=== PATIENT | male | born 1940 | race Asian ===

== ENCOUNTER 2017-08-09 05:41 | Day surgery (SDC) | payer MEDICARE, SELFPAY ==
[2017-08-08 10:09] VITALS: BP 144/81; PULSE 70; RESP 16; TEMP 36.1; O2SAT 97; BMI 24.1
[2017-08-08 11:07] LABS: Hematocrit 40.2 % (40-54); Hemoglobin 13.6 g/dl (13.0-16.5); Mean Corp Hgb Conc 33.8 g/gl (32-36); Mean Corpuscular Hgb 31.3 pg (27.0-32.0); Mean Corpuscular Volume 92.4 fL (80-94); Mean Platelet Vol. 10.5 fl (6.2-12.0); Platelet Count 145 K/mm3 (150-450); RBC Distribution Width CV 12.9 % (11.6-14.6); RBC Distribution Width SD 42.6 fl (35.1-43.9); Red Blood Count 4.35 M/mm3 (4.6-6.2); White Blood Count 6.7 K/mm3 (4.4-11.0)
[2017-08-08 11:10] LABS: Scan Indicated on CBC? Y/N NO
[2017-08-08 11:29] LABS: Anion Gap 8 (5-15); BUN 20 mg/dL (7-18); BUN/Creat Ratio 12.7 RATIO (10-20); Calcium,Total 8.8 mg/dL (8.5-10.1); Chloride 102 mmol/L (98-107); Creatinine, Serum 1.57 mg/dL (0.70-1.30); EST Glomerular Filtration Rate 46 mL/min (>60); Est Glom Filt Rate - Afr Amer 56 mL/min (>60); Estimated Creatinine Clearance 41.98 ml/min; Glucose 170 mg/dL (70-110); Potassium 4.6 mmol/L (3.5-5.1); Sodium Level 139 mmol/L (136-145)
[2017-08-09] VITALS (11 sets, daily range): BP systolic 126–152; BP diastolic 64–134; PULSE 70–83; RESP 14–16; TEMP 36.1–36.9; O2SAT 92–100; BMI 24.1; BMI 24.3
[2017-08-09 06:31] LABS: Bedside Glucose 224 mg/dL (70-110)
[2017-08-09] MEDS: Cefazolin 2 GM in Syringe IV (07:30)
--- NOTE | 2017-08-09 07:30 | PROSB_PTH ---
PATIENT: HAIM MICHAEL [place] [facility] [id number] AGE/SX: 77/M ROOM: RE08/09/[address]: Zeferino Tate MD : [id number] BED: DIS: 08/10/2017 SPEC #: [id number] RECD: 08/09/17 12:29 STATUS: DANUTA SHIRIN #: [id number] EMILIANO: 08/09/17 07:[address]: Zeferino Tate DEPT: SURGICAL PATHOLOGY RECD BY: Sumanth Ortega ENTERED: 08/09/17 13:36 SP TYPE: PROST BX OTHR DR: Dr. John Paul Gurrola MD Tissues: Prostate, NOS Procedures: Surgery Specimen Level IV HEADER OPERATION: Transurethral resection, prostate Olympus PRE-OP DIAGNOSIS: Urgency of urination, nocturia and urge incontinence TISSUE SUBMITTED: Prostate chips MICROSCOPIC DIAGNOSIS Prostate, transurethral resection: Benign nodular hyperplasia, glandular and stromal types. Mild chronic inflammation. AM:santos 08/10/17 MICROSCOPIC DESCRIPTION Slides are reviewed. GROSS DESCRIPTION Received is one container labeled with the patient's name and designated prostate chips. The specimen consists of multiple irregular fragments of pink-barnes, rubbery, soft tissue that in aggregate weigh 1.6 gm and measure in aggregate 2.5 x 2 x 0.2 cm. The entire specimen is submitted in two cassettes. / AM:santos 08/09/17 TC:3 CPT: 87775
[2017-08-09] MEDS: Lubricating Jelly 60 GM Tube 30 GM TOPICAL (08:00)
--- NOTE | 2017-08-09 08:52 | PCM.IMDPSTOP ---
Immediate Post-Op Note Date of Procedure: 08/09/17 Primary Surgeon/Physician: Zeferino Tate nurse practitioner home assessments: None Pre-Operative Diagnosis: BPH w oibstruction, OAB Post-Operative Diagnosis: same Surgery/Procedure Performed:: cysto, Botox 100 IU's, TURP Description of Surgical Findings:: as above Estimated Blood Loss: 20 cc's Specimen's removed: prostatic chips Type of Anesthesia:: General - Gen ET D Krivinko - Admit VTE Documentation VTE Present on Admission: No VTE Mechan Device Prophylaxis: SCD's
--- NOTE | 2017-08-09 08:54 | PCM.OP.BLANK ---
Operative Report Date of Procedure: 08/09/17 09 August 2017 Diagnosis BPH with outlet obstruction and OAB Anesthesia General ET Kelli Fritz/Lucina Indication 77-year-old male who has had significant obstructive symptoms failed medical management has significant overactive bladder tolerating anticholinergics very poor and is brought this time for trans-resection prostate of Botox injection Procedure patient was preloaded with antibiotics and had SCUDs in place before coming to the OR. He is placed under general anesthesia ET for failure of an LMA. Placed lithotomy position prepped and draped sterile technique. Cystoscopy was performed showing normal urethra no strictures with bilobar hyperplasia elevated bladder neck and the bladder had significant trabeculation. There were no bladder stones. At this point after examining the bladder. The respiratory removed. Urethra filled with water-soluble lubricant. Was dilated with Hettinger sounds. 25 Barbadian resectoscopic sheath was inserted with the Olympus bipolar. At this point and is using a loop to resect the lateral lobes and patient was having some choking episodes he thinks about switch over to a VaporTrode elective vaporization of the prostatic fossa performed on the view sidewalls and the rough procedures no active bleeding exam inside the bladder no remaining chips. Patient had a wide open stream by Crede. That showed up appropriately. The external sphincter was intact. A 20 Barbadian catheter 5 cc balloon was placed to drainage. Patient was awakened and taken to RRR in good condition. This note was generated with [employer] dictation software. It may contain incorrect words, spelling, and punctuation that were not noted in checking the note before signing.
--- NOTE | 2017-08-09 08:58 | PCM.DC.URO ---
Discharge Diet: 1999 Calorie Control Diet, - - DRINK A LOT OF FLUIDS A LOT!! Discharge Activity: May Not Drive, May Shower, - - NO LIFTING OR STRAINING Lifting Restrictions: NO LIFTING Additional Activity Instructions:: IF CLOTS IN URINE, PUSH FLUIDS AND CALL ME Call your doctor if you observe: Fever of 101 or Higher, Inability to urinate, - - IF CATHETER PLUGS OFF, GO TO EMERGENCY ROOM Allergies/Adverse Reactions: Allergies No Known Allergies Allergy (Verified 08/08/17 09:24) Medications to take at Discharge Aspirin [Aspirin, Baby] 81 mg PO QHS 08/08/17 Finasteride [Proscar] 5 mg PO QHS 08/08/17 Fluticasone 0.05% [Flonase Nasal Warren] 2 spray NASAL QHS 08/08/17 Glimepiride [Amaryl] 4 mg PO QHS 08/08/17 Lovastatin [Mevacor] 40 mg PO QHS 08/08/17 Olopatadine HCl [Patanol] 1 drop EACH EYE BID PRN 08/08/17 Prednisone 10 mg PO BID PRN 08/08/17 Sertraline HCl [Zoloft] 100 mg PO QHS 08/08/17 Ciprofloxacin [Cipro] 250 mg PO BID #14 tab 08/09/17 TraMADol [Ultram (G)] 50 mg PO Q6H PRN PRN #14 tab 08/09/17 The following prescriptions were given: TraMADol [Ultram (G)] 50 mg PO Q6H PRN PRN #14 tab PRN Reason: Pain Ciprofloxacin [Cipro] 250 mg PO BID #14 tab Primary Care Physician: John Paul Gurrola MD [Primary Care Provider] - Please Follow Up With: Zeferino Tate MD - [phone] When: COME TO OFFICE ON MONDAY AM AROUND 10:00
[2017-08-09] MEDS: Lactated Ringers 1,000 ML 150 ML IV ×2 (11:19→18:28)
[2017-08-09] MEDS: Ciprofloxacin 500 MG Tablet PO (21:19)
[2017-08-09] MEDS: Aspirin 81 MG TAB.CHEW PO (21:19)
[2017-08-09] MEDS: Docusate Sodium 100 MG Capsule 200 MG PO (21:19)
[2017-08-09] MEDS: Glimepiride 4 MG Tablet PO (21:19)
[2017-08-09] MEDS: Fluticasone 0.05% 1 SPRAY NASAL.SRY 2 SPRAY NASAL (21:19)
[2017-08-09] MEDS: Finasteride 5 MG Tablet PO (21:21)
[2017-08-09] MEDS: Sertraline 100 MG Tablet PO (21:21)
[2017-08-09] MEDS: Atorvastatin Calcium 10 MG Tablet PO (21:21)
[2017-08-10] MEDS: Lactated Ringers 1,000 ML 150 ML IV (02:35)
[2017-08-10 04:00] VITALS: BP 116/72; PULSE 80; RESP 16; TEMP 36.7; O2SAT 94
[2017-08-10] MEDS: Docusate Sodium 100 MG Capsule 200 MG PO (11:01)
[2017-08-10] MEDS: Ciprofloxacin 500 MG Tablet PO (11:01)
--- NOTE | 2017-08-10 11:27 | NURSING ---
Reviewed care of anderson catheter including emptying of bedside bag with patient. Patient able to demonstrate how to appropriately drain anderson bag. Reviewed with patient importance of keeping the bag below the level of the bladder as well as appropriately cleansing of the catheter and surrounding area. Patient was also provided with a handout printed from [employer] about anderson care. Patient repeated that he will cook pickled meat prescriptions at [facility] and that he has a follow up appointment with Dr Tate on 08/11
--- NOTE | 2017-10-11 13:21 | PCM.OP.BLANK ---
Operative Report Date of Procedure: 08/09/17 11 October 2017 Date of the procedure 09 August 2017 This is a delayed note for procedure of 09 August 2017. Patient had the operative note dictated but it was incomplete. Plan 4, performed, and had discussed with patient extensively about Botox injection intraoperatively. Was performed but not dictated in the original note. Patient had 100 IUs of Botox diluted it at 10-1 show an injected in 10 cc throughout the bladder to help control urgency postoperatively. This was performed prior to proceeding with TURP. TURP Ambriz catheter was inserted and patient awakened and taken to RRR in good condition
== END 2017-08-10 11:25 | disposition home or self-care (01) ==
LOC: SDC 05:42 → AC 05:42 → MS2 10:47
PROVIDERS: Family Provider Family Medicine; PCP Family Medicine; Visit Provider Urology
PROC: (CPT 52287; principal; 2017-08-09 07:20)
DX: N41.1 Chronic prostatitis (principal); N40.1 Benign prostatic hyperplasia with lower urinary tract symptoms; N13.8 Other obstructive and reflux uropathy; N32.81 Overactive bladder; I25.10 Atherosclerotic heart disease of native coronary artery without angina pectoris; E78.00 Pure hypercholesterolemia, unspecified; E11.9 Type 2 diabetes mellitus without complications; G47.30 Sleep apnea, unspecified; I51.9 Heart disease, unspecified; F32.9 Major depressive disorder, single episode, unspecified; Z87.891 Personal history of nicotine dependence; Z79.82 Long term (current) use of aspirin; Z79.84 Long term (current) use of oral hypoglycemic drugs; Z79.899 Other long term (current) drug therapy
CPT/HCPCS: 00914; 52287; 52630; 36415; 80048; 82962; 85027; 88305; 93005; 97802; J7120; J0585; J3490

== ENCOUNTER → 2017-12-29 08:30 | Outpatient (CLI) | payer MEDICARE, SELFPAY ==
[2017-12-29 10:25] LABS: Absolute Lymphocyte Count 0.89 X10^3/ul (0.83-4.51); Basophil# 0.03 X10^3/uL; Basophil% 0.6 % (0-1); Eosinophil# 0.92 X10^3/uL; Eosinophils% 16.9 % (0-5); Hematocrit 39.7 % (40-54); Hemoglobin 13.2 g/dl (13.0-16.5); Lymphocyte # 0.89 X10^3/ul (4.0); Lymphocyte % 16.4 % (19-41); Mean Corp Hgb Conc 33.2 g/gl (32-36); Mean Corpuscular Hgb 30.3 pg (27.0-32.0); Mean Corpuscular Volume 91.1 fL (80-94); Monocyte# 0.63 X10^3/uL; Monocyte% 11.6 % (0-10); Neutrophil # 2.95 X10^3/uL (2.7-7.7); Neutrophil % 54.3 % (47-70); Platelet Count 151 K/mm3 (150-450); RBC Distribution Width CV 13.1 % (11.6-14.6); Red Blood Count 4.36 M/mm3 (4.6-6.2); White Blood Count 5.4 K/mm3 (4.4-11.0)
[2017-12-29 10:26] LABS: POSITIVE COUNT NO; POSITIVE DIFFERENTIAL NO; POSITIVE MORPHOLOGY NO
[2017-12-29 10:39] LABS: Hemoglobin A1c 7.6 % (4.2-6.3)
[2017-12-29 10:51] LABS: Anion Gap 7 (5-15); BUN 21 mg/dL (7-18); BUN/Creat Ratio 13.5 RATIO (10-20); Calcium,Total 8.7 mg/dL (8.5-10.1); Chloride 107 mmol/L (98-107); Cholesterol 263 mg/dL (200); Creatinine, Serum 1.55 mg/dL (0.70-1.30); EST Glomerular Filtration Rate 47 mL/min (>60); Est Glom Filt Rate - Afr Amer 56 mL/min (>60); Glucose 73 mg/dL (74-106); High Density Lipoprotein 40 mg/dL; PSA,Total - Annual Screen 2.82 ng/mL (0.00-4.00); Sodium Level 141 mmol/L (136-145); Triglycerides 156 mg/dL; Very Low Density Lipoprotein 31 mg/dL (5-40)
== END ==
PROVIDERS: Family Provider Family Medicine; PCP Family Medicine; Visit Provider Family Medicine
DX: E11.22 Type 2 diabetes mellitus with diabetic chronic kidney disease (principal); N18.3 Chronic kidney disease, stage 3 (moderate); E78.00 Pure hypercholesterolemia, unspecified; Z12.5 Encounter for screening for malignant neoplasm of prostate
CPT/HCPCS: 36415; 80048; 80061; 83036; 84153; 85025; G0103

== ENCOUNTER → 2018-01-09 07:07 | Outpatient (CLI) | payer MEDICARE, SELFPAY ==
--- NOTE | 2018-01-09 14:02 | STRESSREP ---
Stress Test Report Date: 01/09/2018 Procedure: Exercise tolerance test/imaging study Indications: CAD Consent: Per the patient Procedure: The patient exercised on a Joaquín protocol for 9 minutes completing Stage III achieving a peak heart rate of 116 bpm (80 % predicted maximal heart rate) with a peak blood pressure 180/60 mmHg and a peak MET capacity of 10 METs. The baseline ECG demonstrated normal sinus rhythm. The peak exercise ECG demonstrated somatic/motion artifact with no obvious ECG changes the heart rate achieved. There were no cardiac dysrhythmias pretest, during exercise, or recovery. The functional capacity was considered good. There was no complaint of chest discomfort during exercise or recovery. The examination was discontinued secondary to dyspnea and fatigue. Impression: 1. Technically inadequate (percent predicted maximal heart rate less than 85%) exercise tolerance test 2. Peak exercise ECG demonstrated somatic/motion artifact with no obvious ECG changes at the heart rate achieved 3. No cardiac dysrhythmias pretest, during exercise, or recovery. 4. Nuclear images pending Myocardial perfusion imaging study: Technique: The patient was injected with 11.4 mCi of technetium 99m Cardiolite and subsequently rest SPECT Cardiolite nuclear imaging was obtained in the horizontal long, vertical long, and short axis views. The patient exercised on a Joaquín protocol for 9 minutes completing Stage III achieving a peak heart rate of 116 bpm (80 % predicted maximal heart rate) with a peak blood pressure 180/60 mmHg and a peak MET capacity of 10 METs. The patient was injected with 33.2 mCi of technetium 99m Cardiolite and subsequently stress SPECT Cardiolite nuclear imaging was obtained in the horizontal long, vertical long, and short axis views. A gated Cardiolite study at peak stress was obtained. Interpretation: Rest and stress SPECT Cardiolite nuclear imaging status post realignment, normalization, and attenuation correction, demonstrates appearance of relative uniform tracer uptake and myocardial perfusion appearing within normal limits at the heart rate achieved. There is end systolic thickening and brightening. The gated Cardiolite study demonstrates myocardial thickening and inward wall motion. The reported LVEF is 67 %. Impression: 1. Rest and stress SPECT Cardiolite nuclear imaging demonstrate severe uniform tracer uptake and myocardial perfusion appearing within normal limits at the heart rate achieved. 2. The gated Cardiolite study reports an LVEF of 67 %. This note was generated with [employer] software. It may contain incorrect words, spelling, and punctuation that were not noted in checking the note before signing.
== END ==
PROVIDERS: Family Provider Family Medicine; PCP Family Medicine; Visit Provider Family Medicine
DX: I25.10 Atherosclerotic heart disease of native coronary artery without angina pectoris (principal)
CPT/HCPCS: 78452; 93017; A9500; A4216

== ENCOUNTER → 2018-07-16 09:36 | Outpatient (CLI) | payer MEDICARE, SELFPAY ==
[2017-08-09 11:11] VITALS: BMI 24.3
[2018-07-16 10:22] LABS: Absolute Lymphocyte Count 1.25 X10^3/ul (0.83-4.51); Absolute Neutrophil Count 3.1 X10^3/uL (2.0-7.7); Basophil# 0.02 X10^3/uL; Basophil% 0.3 % (0-1); Eosinophil# 1.12 X10^3/uL; Eosinophils% 18.7 % (0-5); Hematocrit 39.9 % (40-54); Hemoglobin 12.8 g/dl (13.0-16.5); Lymphocyte # 1.25 X10^3/ul (4.0); Lymphocyte % 20.8 % (19-41); Mean Corp Hgb Conc 32.1 g/gl (32-36); Mean Corpuscular Hgb 30.3 pg (27.0-32.0); Mean Corpuscular Volume 94.5 fL (80-94); Mean Platelet Vol. 10.4 fl (6.2-12.0); Monocyte# 0.47 X10^3/uL; Monocyte% 7.8 % (0-10); Neutrophil # 3.13 X10^3/uL (2.7-7.7); Neutrophil % 52.2 % (47-70); Platelet Count 152 K/mm3 (150-450); Red Blood Count 4.22 M/mm3 (4.6-6.2)
[2018-07-16 10:24] LABS: POSITIVE COUNT NO; POSITIVE DIFFERENTIAL NO; POSITIVE MORPHOLOGY NO
[2018-07-16 10:45] LABS: Hemoglobin A1c 6.3 % (4.2-6.3)
[2018-07-16 10:53] LABS: ALB/GLOB Ratio 0.9 RATIO (0.9-2.4); AST(SGOT) 21 U/L (15-37); Alanine Aminotransfer ALT/SGPT 25 U/L (16-61); Albumin, Serum 3.7 g/dL (3.2-5.0); Alkaline Phosphatase 97 U/L (45-117); Anion Gap 5 (5-15); BUN 20 mg/dL (7-18); BUN/Creat Ratio 12.2 RATIO (10-20); Calcium,Total 8.1 mg/dL (8.5-10.1); Chloride 108 mmol/L (98-107); Cholesterol 130 mg/dL (200); Creatinine, Serum 1.64 mg/dL (0.70-1.30); EST Glomerular Filtration Rate 44 mL/min (>60); Est Glom Filt Rate - Afr Amer 53 mL/min (>60); Globulin 4.2 g/dL (2.2-4.2); Glucose 88 mg/dL (74-106); High Density Lipoprotein 43 mg/dL; Potassium 4.1 mmol/L (3.5-5.1); Protein, Total 7.9 g/dL (6.4-8.2); Sodium Level 142 mmol/L (136-145); Thyroid Stim Hormone (TSH) 2.37 uIU/mL (0.358-3.74); Triglycerides 103 mg/dL; Very Low Density Lipoprotein 21 mg/dL (5-40)
== END ==
PROVIDERS: Family Provider Family Medicine; PCP Family Medicine; Referring Provider Family Medicine; Visit Provider Family Medicine
DX: R63.4 Abnormal weight loss (principal); E11.9 Type 2 diabetes mellitus without complications; E78.00 Pure hypercholesterolemia, unspecified
CPT/HCPCS: 36415; 80053; 80061; 83036; 84443; 85025

== ENCOUNTER → 2018-10-04 16:31 | Outpatient (CLI) | payer MEDICARE, SELFPAY ==
[2017-08-09 11:11] VITALS: BMI 24.3
--- NOTE | 2018-10-04 16:34 | RAD_ITS ---
STUDY: X-RAY CHEST REASON FOR EXAM: Male, 78 years old. Cough TECHNIQUE: PA and lateral views of the chest. COMPARISON: None. FINDINGS: Reticular dominant process of the left lower lobe abuts the left hemidiaphragm. Mild reticular opacities of the lateral right lower lobe also identified. There is no demonstrated pleural abnormality. Normal size heart. Normal mediastinum and ayaz. Normal visualized pulmonary arteries. There is atherosclerotic calcification of the aortic arch with tortuosity. There are diffuse degenerative changes of the visualized thoracic spine. Normal visualized ribs, clavicles, and shoulders. There is no demonstrated abnormality of the visualized soft tissue structures of the upper abdomen. RAD/Chest PA and Lateral IMPRESSION: 1. Asymmetric left basilar infiltrate suggesting pneumonia. Suspect underlying bibasilar fibrotic changes. Electronically Signed: Alexandro Mccurdy MD at 21:15 EST , Service support ,
== END ==
PROVIDERS: Family Provider Family Medicine; PCP Family Medicine; Referring Provider Family Medicine; Visit Provider Family Medicine
DX: R05 Cough (principal)
CPT/HCPCS: 71046

== ENCOUNTER → 2018-10-19 09:37 | Outpatient (CLI) | payer MEDICARE, SELFPAY ==
--- NOTE | 2018-10-19 09:42 | RAD_ITS ---
STUDY: X-RAY - ESOPHAGUS (BARIUM SWALLOW) WITH FLUOROSCOPY REASON FOR EXAM: Male, 78 years old. Dysphasia. Cough with swallowing. TECHNIQUE: 19 view(s) of the esophagus were obtained following swallowing of barium. FLUOROSCOPY TIME (if supplied): (0:30) minutes/seconds COMPARISON: Comparison is made with prior study dated May 17, 2017. FINDINGS: There is no demonstrated esophageal foreign body. There is no demonstrated stricture or mucosal abnormality. Normal gastroesophageal junction, without a demonstrated hiatal hernia. The patient ingested a 12 mm tablet of barium without any difficulty. There is atherosclerotic calcification of the aortic arch with tortuosity of the descending aorta. Normal visualized pulmonary parenchyma. Normal visualized osseous structures of the thorax. RAD/Esophagus Only IMPRESSION: Normal plain film x-ray examination (barium swallow) of the esophagus. Electronically Signed: Jason Salcedo MD at 10:46 EST , Service support ,
== END ==
PROVIDERS: Family Provider Family Medicine; PCP Family Medicine; Referring Provider Family Medicine; Visit Provider Family Medicine
DX: R13.10 Dysphagia, unspecified (principal)
CPT/HCPCS: 74220

== ENCOUNTER → 2019-03-29 | Outpatient (CLI) | payer MEDICARE, SELFPAY ==
[2017-08-09 11:11] VITALS: BMI 24.3
[2019-03-29 12:20] LABS: Absolute Lymphocyte Count 0.73 X10^3/uL (0.83-4.51); Absolute Neutrophil Count 3.2 X10^3/uL (2.0-7.7); Basophil# 0.04 X10^3/uL; Basophil% 0.7 % (0-1); Eosinophil# 0.82 X10^3/uL; Eosinophils% 15.2 % (0-5); Hematocrit 36.3 % (40-54); Hemoglobin 11.8 g/dL (13.0-16.5); Lymphocyte # 0.73 X10^3/ul (4.0); Lymphocyte % 13.6 % (19-41); Mean Corp Hgb Conc 32.5 g/dL (32-36); Mean Corpuscular Hgb 30.5 pg (27.0-32.0); Mean Corpuscular Volume 93.8 fL (80-94); Mean Platelet Vol. 10.8 fl (6.2-12.0); Monocyte# 0.58 X10^3/uL; Monocyte% 10.8 % (0-10); NRBC Flagged by Analyzer 0 % (0-5); Neutrophil # 3.18 X10^3/uL (2.7-7.7); Neutrophil % 59.1 % (47-70); Platelet Count 140 K/mm3 (150-450); RBC Distribution Width CV 12.8 % (11.6-14.6); RBC Distribution Width SD 43.8 fl (35.1-43.9); Red Blood Count 3.87 M/mm3 (4.6-6.2); White Blood Count 5.4 K/mm3 (4.4-11.0)
[2019-03-29 12:52] LABS: ALB/GLOB Ratio 0.9 RATIO (0.9-2.4); AST(SGOT) 17 U/L (15-37); Alanine Aminotransfer ALT/SGPT 22 U/L (16-61); Albumin, Serum 3.7 g/dL (3.2-5.0); Alkaline Phosphatase 79 U/L (45-117); Anion Gap 7 (5-15); BUN 16 mg/dL (7-18); BUN/Creat Ratio 9.2 RATIO (10-20); Calcium,Total 8.6 mg/dL (8.5-10.1); Chloride 106 mmol/L (98-107); Creatinine, Serum 1.74 mg/dL (0.70-1.30); EST Glomerular Filtration Rate 41 mL/min (>60); Est Glom Filt Rate - Afr Amer 49 mL/min (>60); Glucose 117 mg/dL (74-106); PSA,Total - Annual Screen 3.18 ng/mL (0.00-4.00); Protein, Total 7.7 g/dL (6.4-8.2); Sodium Level 141 mmol/L (136-145); Thyroid Stim Hormone (TSH) 2.91 uIU/mL (0.358-3.74)
[2019-03-29 13:37] LABS: Hemoglobin A1c 6.3 % (4.2-6.3)
== END | disposition home or self-care (01) ==
LOC: MFPLAB 10:35
PROVIDERS: Family Provider Family Medicine; PCP Family Medicine; Referring Provider Family Medicine; Visit Provider Family Medicine
DX: E11.9 Type 2 diabetes mellitus without complications (principal); R63.4 Abnormal weight loss; Z12.5 Encounter for screening for malignant neoplasm of prostate
CPT/HCPCS: 36415; 80053; 83036; 84153; 84443; 85025; G0103

== ENCOUNTER → 2019-04-17 | Outpatient (CLI) | payer MEDICARE, SELFPAY ==
[2017-08-09 11:11] VITALS: BMI 24.3
[2019-04-17 15:44] LABS: Absolute Lymphocyte Count 0.65 X10^3/uL (0.83-4.51); Absolute Neutrophil Count 4.8 X10^3/uL (2.0-7.7); Basophil# 0.04 X10^3/uL; Basophil% 0.6 % (0-1); Eosinophil# 0.65 X10^3/uL; Eosinophils% 9.6 % (0-5); Hematocrit 36.9 % (40-54); Hemoglobin 11.8 g/dL (13.0-16.5); Lymphocyte # 0.65 X10^3/ul (4.0); Lymphocyte % 9.6 % (19-41); Mean Corpuscular Volume 96.9 fL (80-94); Mean Platelet Vol. 10.4 fl (6.2-12.0); Monocyte# 0.66 X10^3/uL; Monocyte% 9.7 % (0-10); NRBC Flagged by Analyzer 0 % (0-5); Neutrophil # 4.75 X10^3/uL (2.7-7.7); Neutrophil % 69.9 % (47-70); Platelet Count 137 K/mm3 (150-450); RBC Distribution Width SD 46.7 fl (35.1-43.9); Red Blood Count 3.81 M/mm3 (4.6-6.2); White Blood Count 6.8 K/mm3 (4.4-11.0)
[2019-04-17 16:29] LABS: Erythrocyte Sedimentation Rate 22 mm/hr (0-20)
[2019-04-17 16:41] LABS: ALB/GLOB Ratio 0.9 RATIO (0.9-2.4); AST(SGOT) 20 U/L (15-37); Alanine Aminotransfer ALT/SGPT 25 U/L (16-61); Albumin, Serum 3.6 g/dL (3.2-5.0); Alkaline Phosphatase 73 U/L (45-117); Anion Gap 5 (5-15); BUN 24 mg/dL (7-18); BUN/Creat Ratio 13.1 RATIO (10-20); Calcium,Total 8.4 mg/dL (8.5-10.1); Chloride 110 mmol/L (98-107); Creatinine, Serum 1.83 mg/dL (0.70-1.30); EST Glomerular Filtration Rate 38 mL/min (>60); Est Glom Filt Rate - Afr Amer 46 mL/min (>60); Globulin 3.9 g/dL (2.2-4.2); Glucose 131 mg/dL (74-106); Protein, Total 7.5 g/dL (6.4-8.2); Sodium Level 143 mmol/L (136-145); Thyroid Stim Hormone (TSH) 1.13 uIU/mL (0.358-3.74)
== END | disposition home or self-care (01) ==
PROVIDERS: Family Provider Family Medicine; PCP Family Medicine; Referring Provider Family Medicine; Visit Provider Family Medicine
DX: R53.83 Other fatigue (principal)
CPT/HCPCS: 36415; 80053; 84443; 85025; 85652

== ENCOUNTER → 2020-01-17 14:49 | Outpatient (CLI) | payer MEDICARE, SELFPAY ==
[2017-08-09 11:11] VITALS: BMI 24.3
--- NOTE | 2020-01-17 14:52 | RAD_ITS ---
STUDY: X-RAY - LEFT KNEE REASON FOR EXAM: Male, 79 years old. Recent fall, lateral side pain TECHNIQUE: 4 view(s) of the knee. COMPARISON: February 06, 2017 FINDINGS: Normal visualized distal femur. Normal visualized proximal tibia and fibula. Normal proximal tibiofibular articulation. There is mild degenerative arthrosis of the medial femorotibial compartment. There is mild degenerative arthrosis of the lateral femorotibial compartment. There is mild degenerative arthrosis of the patellofemoral articulation. There is lateral patellar tilt. There is a joint effusion. There is a stable metallic density that appears to be within the lateral proximal tibia. There are additional stable foreign bodies projecting over the soft tissues. RAD/Knee 4 or More Views IMPRESSION: Joint effusion. Degenerative changes. Stable foreign bodies within the soft tissues and proximal tibia. Electronically Signed: Yusra Poe MD at 15:13 EDT Tel , Service support ,
== END ==
PROVIDERS: PCP Family Medicine; Referring Provider Family Medicine; Visit Provider Family Medicine
DX: S89.92XA Unspecified injury of left lower leg, initial encounter (principal)
CPT/HCPCS: 73564

== ENCOUNTER → 2020-05-07 07:36 | Outpatient (CLI) | payer MEDICARE, SELFPAY ==
--- NOTE | 2020-05-07 07:41 | CT_ITS ---
STUDY: CT LEFT KNEE WITHOUT CONTRAST REASON FOR EXAM: Male, 80 years old. OSTEOARTHRITIS OF LT KNEE, FELL-INJURING LT KNEE, C/O KNEE PAIN RADIATION DOSAGE (If Supplied By Facility): CTDIvol = ( 15.35 ) mGy, DLP = ( 419.26 ) mGycm TECHNIQUE: Transaxial CT imaging of the knee was performed. Coronal and sagittal images were reformatted. Individualized dose optimization techniques were used for this CT. COMPARISON: Comparison is made with prior radiograph dated 01/17/2020. FINDINGS: Normal medial femoral condyle and medial tibial plateau. Mild degree of the joint space narrowing involving the medial compartment of the knee joint. Minimal degenerative spurring along the medial femoral condyle. There is a 1.2 cm x 0.3 cm metallic density in the lateral tibial plateau along its midportion. The evidence of the subchondral cystic formation along the lateral tibial plateau. No evidence of osteochondral defect. There is preservation of the articular joint space of the lateral knee compartment. Normal proximal tibiofibular articulation. Moderate size joint effusion. The quadriceps tendon is grossly normal. The patellar tendon is grossly normal. Normal Hoffa''s fat pad. The soft tissues are unremarkable. CT/Extremity Lower without Contra IMPRESSION: Moderate sized joint effusion. Mild degree of the joint space narrowing involving the medial compartment of knee joint. Subchondral cysts are seen in the lateral tibial plateau with no evidence of osteochondritis desiccation. Small metallic density is seen in the lateral tibial plateau. Electronically Signed: Jason Salcedo, at 8:25 EDT , Service support ,
== END ==
PROVIDERS: PCP Family Medicine; Referring Provider Orthopaedic Surgery; Visit Provider Orthopaedic Surgery
DX: M17.12 Unilateral primary osteoarthritis, left knee (principal)
CPT/HCPCS: 73700

== ENCOUNTER → 2020-12-25 10:38 | Outpatient (CLI) | payer MEDICARE, SELFPAY ==
[2017-08-09 11:11] VITALS: BMI 24.3
[2020-12-25 12:49] LABS: Hemoglobin A1c 6.8 % (3.8-5.6)
[2020-12-25 13:42] LABS: Anion Gap 6 (5-15); BUN 25 mg/dL (7-18); BUN/Creat Ratio 13.7 RATIO (10-20); Calcium,Total 8.7 mg/dL (8.5-10.1); Chloride 107 mmol/L (98-107); Cholesterol 240 mg/dL (200); Creatinine, Serum 1.83 mg/dL (0.70-1.30); EST Glomerular Filtration Rate 38 mL/min (>60); Est Glom Filt Rate - Afr Amer 46 mL/min (>60); Glucose 160 mg/dL (74-106); High Density Lipoprotein 48 mg/dL; Potassium 4.5 mmol/L (3.5-5.1); Sodium Level 139 mmol/L (136-145); Thyroid Stim Hormone (TSH) 3.59 uIU/mL (0.358-3.74); Triglycerides 178 mg/dL; Very Low Density Lipoprotein 36 mg/dL (5-40)
== END ==
PROVIDERS: PCP Family Medicine; Referring Provider Family Medicine; Visit Provider Family Medicine
DX: Z00.00 Encounter for general adult medical examination without abnormal findings (principal); E11.9 Type 2 diabetes mellitus without complications
CPT/HCPCS: 36415; 80048; 80061; 83036; 84443

== ENCOUNTER → 2021-02-01 14:46 | Outpatient (CLI) | payer MEDICARE, SELFPAY ==
[2017-08-09 11:11] VITALS: BMI 24.3
[2021-02-01 17:48] LABS: Absolute Lymphocyte Count 0.78 X10^3/uL (0.83-4.51); Basophil# 0.03 X10^3/uL; Basophil% 0.4 % (0-1); Eosinophil# 0.73 X10^3/uL; Eosinophils% 10.2 % (0-5); Hematocrit 37.1 % (40-54); Hemoglobin 11.7 g/dL (13.0-16.5); Lymphocyte # 0.78 X10^3/ul (0.83-4.51); Lymphocyte % 10.8 % (19-41); Mean Corp Hgb Conc 31.5 g/dL (32-36); Mean Corpuscular Hgb 29.8 pg (27.0-32.0); Mean Corpuscular Volume 94.4 fL (80-94); Mean Platelet Vol. 10.6 fl (6.2-12.0); Monocyte# 0.63 X10^3/uL; Monocyte% 8.8 % (0-10); NRBC Flagged by Analyzer 0 % (0-5); Neutrophil # 4.99 X10^3/uL (2.7-7.7); Neutrophil % 69.4 % (47-70); Platelet Count 173 K/mm3 (150-450); RBC Distribution Width CV 13.4 % (11.6-14.6); RBC Distribution Width SD 45.9 fl (35.1-43.9); Red Blood Count 3.93 M/mm3 (4.6-6.2); White Blood Count 7.2 K/mm3 (4.4-11.0)
[2021-02-01 18:08] LABS: Anion Gap 7 (5-15); BUN 24 mg/dL (7-18); BUN/Creat Ratio 13.7 RATIO (10-20); Calcium,Total 8.6 mg/dL (8.5-10.1); Chloride 107 mmol/L (98-107); Creatinine, Serum 1.75 mg/dL (0.70-1.30); EST Glomerular Filtration Rate 40 mL/min (>60); Est Glom Filt Rate - Afr Amer 49 mL/min (>60); Glucose 120 mg/dL (74-106); Potassium 4.6 mmol/L (3.5-5.1); Sodium Level 142 mmol/L (136-145)
== END ==
PROVIDERS: PCP Family Medicine; Referring Provider Family Medicine; Visit Provider Family Medicine
DX: R07.9 Chest pain, unspecified (principal)
CPT/HCPCS: 36415; 80048; 85025

== ENCOUNTER 2021-02-02 22:31 | Emergency (ER) | payer MEDICARE, SELFPAY ==
[2021-02-02 22:32] VITALS: BP 161/81; PULSE 75; RESP 16; TEMP 36.2; O2SAT 98; BMI 27.0
[2021-02-02 22:37] VITALS: BP 161/81; PULSE 67; RESP 15; O2SAT 98
[2021-02-02 22:46] LABS: Bedside Glucose 158 mg/dL (70-110)
--- NOTE | 2021-02-02 22:52 | CT_ITS ---
STUDY: CT BRAIN WITHOUT CONTRAST REASON FOR EXAM: Male, 80 years old. fall, amnesia,low blood sugar RADIATION DOSAGE (If Supplied By Facility): CTDIvol = ( 44.99 ) mGy, DLP = ( 829.85 ) mGycm TECHNIQUE: Transaxial CT imaging of the brain was performed without administration of intravenous contrast material. Individualized dose optimization techniques were used for this CT. COMPARISON: No relevant priors. FINDINGS: Normal soft tissue structures. Normal calvarium. There is mild cerebral atrophy with widening of the extra-axial spaces and ventricular dilatation. There are areas of decreased attenuation within the white matter tracts of the supratentorial brain, consistent with microvascular disease changes. Normal basal ganglia and thalami. Normal brainstem. Normal cerebellum. There is no intracranial hemorrhage. There are no findings of an acute ischemic infarction. Normal visualized paranasal sinuses. CT/Brain/Head without Contrast IMPRESSION: Chronic involutional changes of the brain. Electronically Signed: Dallas Preciado DO at 23:31 EDT Tel , Service support ,
--- NOTE | 2021-02-02 22:53 | EKG12_ITS ---
Test Reason : HYPOGLYCEMIA Blood Pressure : / mmHG Vent. Rate : 066 BPM Atrial Rate : 066 BPM P-R Int : 152 ms QRS Dur : 084 ms QT Int : 432 ms P-R-T Axes : 058 064 063 degrees QTc Int : 452 ms Normal sinus rhythm Normal ECG Confirmed by ONELIA NGUYỄN, SAMSON ([id number]), supervising editor news reel VIVIAN KANG ([id number]) on 02/05/2021 8:27:17 AM Referred By: BB Confirmed By:SAMSON ROUSSEAU MD
--- NOTE | 2021-02-02 22:54 | EX.ED.DYSGE1 ---
HPI History of Present Illness Chief Complaint: Hypoglycemia Informant: patient and EMS Onset/Context/Timing Onset: Today (JPTA) Quality: pt denies pain/sx Narrative Narrative: Patient had a fall tonight. He was brought by EMS, he was a little lethargic and his blood sugar was 50 when they checked it there, they gave him D10 through an IV, he is more alert since then. He is a type II diabetic on oral medications. He does not remember the fall or understand why he is in the emergency department but he is redirectable. He states he remembers that he had left eye cataract surgery a few days ago and has been on drops since then with no major issues. He denies pain anywhere to suggest an injury, he says that his left knee Has been hurting off and on, he cannot remember how long but does not sound like that is a new problem. [facility] Medical History (Updated 02/03/21 @ 01:[address] Jaime Hayes MD) Former smoker Hyperlipidemia Sleep apnea Type 2 diabetes mellitus Home Medications Lovastatin [Mevacor] 40 mg PO QHS 08/08/17 [History Last Taken Unknown] Olopatadine Hcl [Patanol] 1 drp EACH EYE BID PRN 08/08/17 [History Last Taken Unknown] aspirin 81 mg PO QHS 08/08/17 [History Last Taken Unknown] finasteride 5 mg PO QHS 08/08/17 [History Last Taken Unknown] fluticasone propionate 2 spray NASAL QHS 08/08/17 [History Last Taken Unknown] glimepiride 4 mg PO QHS 08/08/17 [History Last Taken Unknown] prednisone 10 mg PO BID PRN 08/08/17 [History Last Taken Unknown] sertraline 100 mg PO QHS 08/08/17 [History Last Taken Unknown] ciprofloxacin HCl 250 mg PO BID #14 tab 08/09/17 [Rx Last Taken Unknown] tramadol 50 mg PO Q6H PRN PRN #14 tab 08/09/17 [Rx Last Taken Unknown] Allergy/AdvReac Type Severity Reaction Status Date / Time No Known Allergies Allergy Verified 02/02/21 22:37 Social History Smoking Status: Former smoker ROS ROS ED Constitutional Constitutional ED: Denies chills or fever(s) Eyes Eyes: Reports other Details: Postoperative left eye discomfort and redness ; Denies diplopia ENT ENT ED: Denies rhinorrhea or sore throat Cardiovascular Cardiovascular: Denies chest pain or palpitations Respiratory/Chest Respiratory/Chest: Denies cough or dyspnea Gastrointestinal Gastrointestinal: Denies abdominal pain, diarrhea, nausea or vomiting Genitourinary Genitourinary ED: Denies dysuria or hematuria Musculoskeletal Musculoskeletal: Reports as per HPI; Denies back pain or neck pain Integumentary Denies abscess or rash Neurologic Neurologic: Denies headache(s), paresthesias or weakness Psychiatric Psychiatric: Denies anxiety or suicidal thoughts EXAM Physical Exam Const Vital Signs: 02/02/21 22:32 02/02/21 22:37 Temperature 97.2 F L Temperature Source Temporal Pulse Rate 75 67 Respiratory Rate 16 15 Respiratory Effort Normal Respiratory Pattern Normal Blood Pressure 161/81 H 161/81 H Blood Pressure Mean 107 107 Pulse Ox 98 98 Oxygen Delivery Method Room Air Room Air Positive well nourished and well developed General Appearance ED: well developed and NAD HEENT Reports moist mucous membranes normocephalic and atraumatic Eyes PERRL and EOMs intact bilaterally Eyes Narrative: Evidence of minor ecchymosis/subconjunctival hemorrhage right nasal conjunctive a/sclera consistent with postoperative changes. No discharge or active bleeding. Anterior chamber deep and quiet on gross inspection. Neck full ROM and supple Resp normal respiratory effort and clear to auscultation bilaterally Cardio regular rate, regular rhythm and no murmurs GI non-tender and non-distended Auscultation: normoactive bowel sounds Palpation: soft Back/Spine no CVA tenderness General Back: other FROM Extremity normal to inspection General Extremety ED: Negative for edema, pulses abnormal or tenderness General Extremity: Negative for edema or pulses abnormal Neuro oriented x3, CN's II-XII intact bilaterally and no sensory deficits noted Neuro Narrative: Amnestic to event but oriented otherwise. Sensorium / Orientation: awake and alert Motor Exam: strength 5/5 throughout Skin no rashes or lesions noted and no wounds MDM MDM MDM Narrative Medical decision making narrative: Patient was monitored here he had no telemetry events, his vital signs are normal with a blood pressure in the 120s, heart rate in the 60s, pulse ox 94% while sleeping in no respiratory distress on reevaluation. His new blood sugar is 99 after he was observed for 3+ hours. His son came and I had a long discussion with him. The patient's did not come, but he spoke with her, basically she heard him getting up from the floor in the bathroom and came to evaluate him and saw that he had passed out onto the bathroom floor. He was a little disoriented and lethargic, after EMS gave him D10 this improved and he arrived here. His work-up is negative except for renal insufficiency that appears to be chronic. CT of the head shows no acute traumatic injury or other figueroa. EKG unremarkable with negative troponin. He feels better and is able to stand. He does have chronic left knee pain that keeps him from walking normally, but he is at baseline at this time with a normal nonlateralizing neurologic examination, and I suspect this was a hypoglycemic event. Son is okay taking him home the patient is comfortable with this and following up with his doctor for reevaluation. Lab Data Attestation: I reviewed the patient's lab results. Labs: Laboratory Results - last 24 hr 02/02/21 02/02/21 02/02/21 22:40 23:00 23:00 WBC 8.3 RBC 3.70 L Hgb 11.3 L Hct 34.6 L MCV 93.5 MCH 30.5 MCHC 32.7 RDW Std Deviation 46.1 H RDW Coeff of Ulises 13.4 Plt Count 144 L MPV 10.5 Immature Gran % (Auto) 1.100 H Neut % (Auto) 77.3 H Lymph % (Auto) 6.5 L [place] % (Auto) 8.4 Eos % (Auto) 6.2 H Baso % (Auto) 0.5 Absolute Neuts (auto) 6.5 Absolute Lymphs (auto) 0.54 L Nucleated RBC % 0 Differential Comment SCANNED Platelet Estimate ADEQUATE Sodium 139 Potassium 4.0 Chloride 109 H Carbon Dioxide 25.0 Anion Gap 5 BUN 29 H Creatinine 1.84 H Estim Creat Clear Calc 27.71 Est GFR (MDRD) Af Amer 46 L Est GFR (MDRD) Non-Af 38 L BUN/Creatinine Ratio 15.8 Glucose 161 H Calcium 8.5 Troponin I < 0.015 Urine Color Urine Clarity Urine pH Ur Specific [place] Urine Protein Urine Glucose (UA) Urine Ketones Urine Occult Blood Urine Nitrite Urine Bilirubin Urine Urobilinogen Ur Leukocyte Esterase Urine RBC Urine WBC Ur Squamous Epith Cells Urine Bacteria Hyaline Casts Urine Mucus POC Glucose 158 H 02/02/21 23:43 WBC RBC Hgb Hct MCV MCH MCHC RDW Std Deviation RDW Coeff of Ulises Plt Count MPV Immature Gran % (Auto) Neut % (Auto) Lymph % (Auto) [place] % (Auto) Eos % (Auto) Baso % (Auto) Absolute Neuts (auto) Absolute Lymphs (auto) Nucleated RBC % Differential Comment Platelet Estimate Sodium Potassium Chloride Carbon Dioxide Anion Gap BUN Creatinine Estim Creat Clear Calc Est GFR (MDRD) Af Amer Est GFR (MDRD) Non-Af BUN/Creatinine Ratio Glucose Calcium Troponin I Urine Color Yellow Urine Clarity Clear Urine pH 6.0 Ur Specific [place] 1.015 Urine Protein Negative Urine Glucose (UA) 50 H Urine Ketones Negative Urine Occult Blood 10 H Urine Nitrite Negative Urine Bilirubin Negative Urine Urobilinogen Normal Ur Leukocyte Esterase Negative Urine RBC 0-5 SEEN Urine WBC 0 SEEN Ur Squamous Epith Cells 0 SEEN Urine Bacteria 0 SEEN Hyaline Casts 0-5 SEEN Urine Mucus 0 SEEN POC Glucose Radiography Diagnostic Testing: Radiology Impression Brain CT 02/02/21 22:52 IMPRESSION: Chronic involutional changes of the brain. Electronically Signed: Dallas Preciado DO at 23:31 EDT Tel , Service support , EKG Initial EKG: Attestation: I personally reviewed and interpreted this EKG as follows: Interpretation: Sinus Rhythm and No Acute Injury Pattern Comments: normal EKG Discharge Plan Triage Chief Complaint: Hypoglycemia ED Provider: Jaime Hayes Dx/Rx/DC Orders Clinical Impression: Syncope and collapse, Hypoglycemia associated with type 2 diabetes mellitus, Chronic kidney insufficiency Instructions: ED DIABETES Hypoglycemia Oral Agent Prescriptions: No Action sertraline 100 MG tablet 100 mg PO QHS RF: 0 glimepiride 4 MG tablet 4 mg PO QHS RF: 0 finasteride 5 MG tablet 5 mg PO QHS RF: 0 Lovastatin [Mevacor] 40 MG tablet 40 mg PO QHS RF: 0 prednisone 10 MG tablet 10 mg PO BID PRN (Reason: Pain) RF: 0 aspirin 81 MG Tab.Chew 81 mg PO QHS RF: 0 fluticasone propionate 1 SPRAY Nasal.Sry 2 spray NASAL QHS RF: 0 Olopatadine Hcl [Patanol] 1 DROP bottle 1 drp Each Eye BID PRN (Reason: Itching) RF: 0 ciprofloxacin HCl 250 MG tablet 250 mg PO BID Qty: 14 RF: 0 tramadol 50 MG tablet 50 mg PO Q6H PRN PRN (Reason: Pain) Qty: 14 RF: 0 Primary Care Provider: Zeferino Bryson Referrals: Zeferino Bryson MD [Primary Care Provider] - 3-5 Days Disposition Disposition: Home, self care
[2021-02-02 23:26] LABS: Absolute Lymphocyte Count 0.54 X10^3/uL (0.83-4.51); Absolute Neutrophil Count 6.5 X10^3/uL (2.0-7.7); Basophil# 0.04 X10^3/uL; Basophil% 0.5 % (0-1); Eosinophil# 0.52 X10^3/uL; Eosinophils% 6.2 % (0-5); Hematocrit 34.6 % (40-54); Hemoglobin 11.3 g/dL (13.0-16.5); Lymphocyte # 0.54 X10^3/ul (0.83-4.51); Lymphocyte % 6.5 % (19-41); Mean Corp Hgb Conc 32.7 g/dL (32-36); Mean Corpuscular Hgb 30.5 pg (27.0-32.0); Mean Corpuscular Volume 93.5 fL (80-94); Mean Platelet Vol. 10.5 fl (6.2-12.0); Monocyte% 8.4 % (0-10); NRBC Flagged by Analyzer 0 % (0-5); Neutrophil # 6.45 X10^3/uL (2.7-7.7); Neutrophil % 77.3 % (47-70); POSITIVE DIFFERENTIAL YES; Platelet Count 144 K/mm3 (150-450); RBC Distribution Width CV 13.4 % (11.6-14.6); RBC Distribution Width SD 46.1 fl (35.1-43.9); White Blood Count 8.3 K/mm3 (4.4-11.0)
[2021-02-02 23:27] LABS: Anion Gap 5 (5-15); BUN 29 mg/dL (7-18); BUN/Creat Ratio 15.8 RATIO (10-20); Calcium,Total 8.5 mg/dL (8.5-10.1); Chloride 109 mmol/L (98-107); Creatinine, Serum 1.84 mg/dL (0.70-1.30); EST Glomerular Filtration Rate 38 mL/min (>60); Est Glom Filt Rate - Afr Amer 46 mL/min (>60); Estimated Creatinine Clearance 27.71 ml/min; Glucose 161 mg/dL (74-106); Sodium Level 139 mmol/L (136-145)
[2021-02-02 23:33] LABS: Differential Indicated SCAN CRITERIA MET
[2021-02-02 23:47] LABS: Bacteria 0 SEEN /hpf (None Seen); Mucous, Urine 0 SEEN /hpf (<or=2+); Squamous Epithelial Cells - UA 0 SEEN /hpf (0-5); White Blood Cells 0 SEEN /hpf (0-5)
[2021-02-02 23:48] LABS: Color, Urine Yellow (Yellow); Glucose, Dipstick 50 mg/dl (Normal); Ketone-Dipstick Negative (Negative); Leukocyte Esterase-Dipstick Negative /ul (Negative); Nitrite-Dipstick Negative (Negative); Occult Blood-Urine 10 /ul (Negative); Protein-Dipstick Negative (Negative); Specific Gravity, Urine 1.015 (1.002-1.030); Urine Bilirubin Dipstick Negative (Negative); Urine Clarity Clear (Clear); Urine Urobilinogen Normal (Normal)
[2021-02-02 23:59] LABS: Differential Comment SCANNED
[2021-02-03] LABS: Platelet Estimate ADEQUATE (ADEQ)
[2021-02-03 00:06] LABS: Hyaline Cast 0-5 SEEN /lpf (0-5); Red Blood Cells-Urine 0-5 SEEN /hpf (0-5)
[2021-02-03 01:36] LABS: Bedside Glucose 99 mg/dL (70-110)
[2021-02-03 01:39] VITALS: BP 139/82; PULSE 63; RESP 16; O2SAT 97
[2021-02-03 01:40] VITALS: BP 139/82; PULSE 63; RESP 16; O2SAT 97
== END 2021-02-03 01:41 | disposition home or self-care (01) ==
PROVIDERS: Emergency Provider Emergency Medicine; PCP Family Medicine
DX: E11.649 Type 2 diabetes mellitus with hypoglycemia without coma (principal); E11.22 Type 2 diabetes mellitus with diabetic chronic kidney disease; N18.9 Chronic kidney disease, unspecified; R55 Syncope and collapse; E78.5 Hyperlipidemia, unspecified; Z79.84 Long term (current) use of oral hypoglycemic drugs; Z79.899 Other long term (current) drug therapy; Z87.891 Personal history of nicotine dependence
CPT/HCPCS: 70450; 80048; 81001; 82962; 84484; 85025; 93005; 99285

== ENCOUNTER → 2021-02-08 11:57 | Outpatient (CLI) | payer MEDICARE, SELFPAY ==
[2021-02-02 22:32] VITALS: BMI 27.0
--- NOTE | 2021-02-08 16:11 | STRESSREP ---
Stress Test Report Exercise stress test. 80-year-old man with a history of chest pain. Stress protocol: Resting EKG demonstrates normal sinus rhythm with a rate of 71 bpm normal intervals are noted resting blood pressure is 122/78 mmHg. The patient exercised according to regular Joaquín protocol for a total duration of 6 minutes. The maximum heart rate attained was 104 bpm which was 73% of max infected heart rate the maximum workload was 7 metabolic equivalents. At rest there were no ST or T wave changes noted to suggest ischemia and at peak exercise upsloping ST changes were noted with did not meet the criteria for ischemia. No clinical angina was noted the test was terminated due to fatigue. The peak blood pressure was 166/72 mmHg. Conclusion: Exercise stress test with no EKG criteria for ischemia at a moderate workload. Good functional aerobic capacity.
== END ==
PROVIDERS: PCP Family Medicine; Referring Provider Family Medicine; Visit Provider Family Medicine
DX: R07.9 Chest pain, unspecified (principal)
CPT/HCPCS: 93017

== ENCOUNTER → 2021-05-25 10:59 | Outpatient (CLI) | payer MEDICARE, SELFPAY ==
[2021-05-25 12:21] LABS: PSA,Total- Diagnostic 3.44 ng/mL (0.0-4.0)
== END ==
PROVIDERS: PCP Family Medicine; Visit Provider Urology
DX: N40.3 Nodular prostate with lower urinary tract symptoms (principal)
CPT/HCPCS: 36415; 84153

== ENCOUNTER 2021-07-26 21:27 | Observation (INO) | payer MEDICARE, SELFPAY ==
[2021-07-26 21:28] VITALS: BP 129/81; PULSE 106; RESP 19; TEMP 39.5; O2SAT 91; BMI 22.8
[2021-07-26 21:37] VITALS: BP 129/81; PULSE 106; RESP 18; TEMP 39.5; O2SAT 96
--- NOTE | 2021-07-26 22:00 | EKG12_ITS ---
Test Reason : HYPOGLYCEMIA Blood Pressure : / mmHG Vent. Rate : 113 BPM Atrial Rate : 113 BPM P-R Int : 160 ms QRS Dur : 088 ms QT Int : 356 ms P-R-T Axes : 063 063 054 degrees QTc Int : 488 ms Sinus tachycardia Otherwise normal ECG Confirmed by ROSI NGUYỄN, MARY ANN ([id number]), commercial production editor [place] ([id number]) on 07/27/2021 10:18:45 AM Referred By: CORA Confirmed By:MARY ANN ARANDA MD
--- NOTE | 2021-07-26 22:10 | RAD_ITS ---
STUDY: X-RAY CHEST REASON FOR EXAM: Male, 81 years old. Cough TECHNIQUE: Portable, upright, AP chest radiograph COMPARISON: 10/04/2018 FINDINGS: Chronically coarsened markings at the lung bases may obscure overlying infiltrate. There is no demonstrated pleural abnormality. Normal size heart. Normal mediastinum and ayaz. Normal visualized pulmonary arteries. Normal visualized aortic arch and descending thoracic aorta. There is no demonstrated abnormality of the visualized soft tissue structures of the upper abdomen. RAD/Chest 1 View (Portable) IMPRESSION: Chronically coarsened markings of the lung bases complicates evaluation for overlying infiltrate. Electronically Signed: Zeferino Ansari MD at 22:38 EST Tel , Service support ,
[2021-07-26 22:21] LABS: Absolute Lymphocyte Count 0.15 X10^3/uL (0.83-4.51); Absolute Neutrophil Count 6.1 X10^3/uL (2.0-7.7); Basophil# 0.01 X10^3/uL; Basophil% 0.2 % (0-1); Eosinophil# 0.03 X10^3/uL; Eosinophils% 0.5 % (0-5); Hematocrit 31.7 % (40-54); Hemoglobin 10.4 g/dL (13.0-16.5); Lymphocyte # 0.15 X10^3/ul (0.83-4.51); Lymphocyte % 2.3 % (19-41); Mean Corp Hgb Conc 32.8 g/dL (32-36); Mean Corpuscular Hgb 30.6 pg (27.0-32.0); Mean Corpuscular Volume 93.2 fL (80-94); Mean Platelet Vol. 10.3 fl (6.2-12.0); Monocyte% 1.6 % (0-10); NRBC Flagged by Analyzer 0 % (0-5); Neutrophil % 94.6 % (47-70); POSITIVE DIFFERENTIAL YES; POSITIVE MORPHOLOGY YES; Platelet Count 104 K/mm3 (150-450); RBC Distribution Width CV 12.9 % (11.6-14.6); RBC Distribution Width SD 43.9 fl (35.1-43.9); White Blood Count 6.4 K/mm3 (4.4-11.0)
[2021-07-26 22:28] VITALS: BP 129/67; PULSE 97; RESP 15; O2SAT 95
[2021-07-26 22:28] LABS: Differential Indicated SCAN CRITERIA MET
[2021-07-26] MEDS: Acetaminophen 500 MG Tablet 1000 MG PO (22:32)
[2021-07-26 22:37] VITALS: BP 129/67; PULSE 97; RESP 16; TEMP 38.6; O2SAT 95
[2021-07-26 22:37] LABS: Anion Gap 6 (5-15); BUN 22 mg/dL (7-18); BUN/Creat Ratio 12.2 RATIO (10-20); Calcium,Total 8.8 mg/dL (8.5-10.1); Chloride 106 mmol/L (98-107); Creatinine, Serum 1.81 mg/dL (0.70-1.30); EST Glomerular Filtration Rate 39 mL/min (>60); Est Glom Filt Rate - Afr Amer 47 mL/min (>60); Estimated Creatinine Clearance 32.77 ml/min; Glucose 77 mg/dL (74-106); Magnesium 2.1 mg/dL (1.6-2.6); Potassium 3.5 mmol/L (3.5-5.1); Sodium Level 138 mmol/L (136-145); Troponin-I HS 13 pg/mL (3.0-78.0)
[2021-07-26 22:43] LABS: Lactic Acid 2.4 mmol/L (0.4-1.9)
[2021-07-26 22:46] LABS: Differential Comment SCANNED
[2021-07-26 23:00] VITALS: BP 105/53; PULSE 97; PULSE 99; RESP 19; TEMP 37.6; O2SAT 96
[2021-07-26 23:20] LABS: Bedside Glucose 66 mg/dL (70-110)
[2021-07-26 23:20] LABS: Bedside Glucose 96 mg/dL (70-110)
[2021-07-26] MEDS: Dextrose 50%-Water 25 GM/50 ML DISP.SYRIN IV (23:24)
--- NOTE | 2021-07-26 23:25 | EX.ED.DYSGE1 ---
HPI History of Present Illness Chief Complaint: Hypoglycemia Narrative Narrative: Patient is a 81-year-old male with past medical history of diabetes. Reportedly EMS was called because his could not wake him up this evening. EMS states when they arrived they checked his blood sugar and it was low at 30. They gave an amp of D50 and his blood sugar improved to just over 200. When he arrived to the ER he is awake and alert and complains of muscle aches and pains and passing out. He states he is not taking any extra doses of his blood sugar medication and he denies any known sick contacts. PFSH PFS Medical History Former smoker Hyperlipidemia Sleep apnea Type 2 diabetes mellitus Home Medications Lovastatin [Mevacor] 40 mg PO QHS 08/08/17 [History Last Taken Unknown] Olopatadine Hcl [Patanol] 1 drp EACH EYE BID PRN 08/08/17 [History Last Taken Unknown] aspirin 81 mg PO QHS 08/08/17 [History Last Taken Unknown] finasteride 5 mg PO QHS 08/08/17 [History Last Taken Unknown] fluticasone propionate 2 spray NASAL QHS 08/08/17 [History Last Taken Unknown] glimepiride 4 mg PO QHS 08/08/17 [History Last Taken Unknown] prednisone 10 mg PO BID PRN 08/08/17 [History Last Taken Unknown] sertraline 100 mg PO QHS 08/08/17 [History Last Taken Unknown] ciprofloxacin HCl 250 mg PO BID #14 tab 08/09/17 [Rx Last Taken Unknown] tramadol 50 mg PO Q6H PRN PRN #14 tab 08/09/17 [Rx Last Taken Unknown] Allergy/AdvReac Type Severity Reaction Status Date / Time No Known Allergies Allergy Verified 02/02/21 22:37 Social History Smoking Status: Former smoker ROS ROS ED Constitutional Constitutional ED: Reports chills and fever(s) ENT ENT ED: Denies sore throat Cardiovascular Cardiovascular: Reports syncope; Denies chest pain Respiratory/Chest Respiratory/Chest: Denies cough or dyspnea Gastrointestinal Gastrointestinal: Denies abdominal pain, diarrhea, nausea or vomiting Genitourinary Genitourinary ED: Denies dysuria Musculoskeletal Musculoskeletal: Reports myalgias Integumentary Denies rash Neurologic Neurologic: Denies headache(s) Hematologic/Lymphatic Hematologic/Lymphatic: Denies easy bleeding or easy bruising EXAM Physical Exam Const Vital Signs: 07/26/21 21:28 07/26/21 21:37 07/26/21 22:28 Temperature 103.1 F H 103.1 F H Temperature Source Oral Temporal Pulse Rate 106 H 106 H 97 Respiratory Rate 19 H 18 15 Respiratory Effort Respiratory Pattern Blood Pressure 129/81 H 129/81 H 129/67 H Blood Pressure Mean 97 97 87 Pulse Ox 91 96 95 Oxygen Delivery Method Room Air Room Air Room Air 07/26/21 22:37 07/26/21 22:59 07/26/21 23:00 Temperature 101.5 F H 99.7 F H Temperature Source Oral Oral Pulse Rate 97 97 Respiratory Rate 16 19 H Respiratory Effort Normal Non-Labored Respiratory Pattern Normal Blood Pressure 129/67 H 105/53 L Blood Pressure Mean 87 70 Pulse Ox 95 96 Oxygen Delivery Method Room Air Room Air Positive well nourished and well developed General Appearance ED: well developed HEENT Reports normocephalic, head/scalp atraumatic and dry mucous membranes Mouth ED: Yes dry mucous membranes Mouth: dry mucous membranes Eyes PERRL and EOMs intact bilaterally Neck supple Neck Narrative: No meningeal signs Resp normal respiratory effort Resp Narrative: Breath sounds are diminished throughout with faint rhonchi in bilateral bases but no signs of respiratory distress Cardio regular rhythm Cardio Narrative: Tachycardic rate with regular rhythm radial pulses are plus 2 out of 4 bilaterally are equal and symmetric GI non-tender and non-distended GI Narrative: No voluntary guarding or rigidity no pulsatile mass Auscultation: normoactive bowel sounds Palpation: soft Extremity normal to inspection and full ROM Neuro oriented x3, CN's II-XII intact bilaterally, moves all extremities and no focal motor deficits Sensorium / Orientation: alert Psych mental status grossly normal Skin no rashes or lesions noted MDM MDM MDM Narrative Medical decision making narrative: Patient's history is consistent with hypoglycemia as EMS reported a value of 30 and altered mental status which resolved when his sugar increased. However he did arrive febrile and mildly tachycardic and with concern for an infective process a basic work-up was obtained. Lab work showed positive influenza A consistent with his cough and abnormal vitals. The patient had dropped from a blood sugar above 200-95 in approximately 10 minutes. He was started on a D5 drip because of this and despite being placed on this his blood sugar went from 95-66. Therefore as he is having persistent hypoglycemia at despite treatment with glucose it is not safe for him to return home as he will most likely have altered mental status once again from his recurrent and persistent hypoglycemia. Therefore the patient will have his drip increased to D10 value and he will be admitted to the hospital for further care Lab Data Attestation: I reviewed the patient's lab results. Labs: Laboratory Results - last 24 hr 07/26/21 07/26/21 07/26/21 21:43 21:50 21:50 WBC 6.4 RBC 3.40 L Hgb 10.4 L Hct 31.7 L MCV 93.2 MCH 30.6 MCHC 32.8 RDW Std Deviation 43.9 RDW Coeff of Ulises 12.9 Plt Count 104 L MPV 10.3 Immature Gran % (Auto) 0.800 Neut % (Auto) 94.6 H Lymph % (Auto) 2.3 L [place] % (Auto) 1.6 Eos % (Auto) 0.5 Baso % (Auto) 0.2 Absolute Neuts (auto) 6.1 Absolute Lymphs (auto) 0.15 L Nucleated RBC % 0 Differential Comment SCANNED Sodium 138 Potassium 3.5 Chloride 106 Carbon Dioxide 26.0 Anion Gap 6 BUN 22 H Creatinine 1.81 H Estim Creat Clear Calc 32.77 Est GFR (MDRD) Af Amer 47 L Est GFR (MDRD) Non-Af 39 L BUN/Creatinine Ratio 12.2 Glucose 77 Lactic Acid Calcium 8.8 Magnesium 2.1 Troponin I High Sens 13 POC Glucose 96 07/26/21 07/26/21 21:50 23:15 WBC RBC Hgb Hct MCV MCH MCHC RDW Std Deviation RDW Coeff of Ulises Plt Count MPV Immature Gran % (Auto) Neut % (Auto) Lymph % (Auto) [place] % (Auto) Eos % (Auto) Baso % (Auto) Absolute Neuts (auto) Absolute Lymphs (auto) Nucleated RBC % Differential Comment Sodium Potassium Chloride Carbon Dioxide Anion Gap BUN Creatinine Estim Creat Clear Calc Est GFR (MDRD) Af Amer Est GFR (MDRD) Non-Af BUN/Creatinine Ratio Glucose Lactic Acid 2.4 H* Calcium Magnesium Troponin I High Sens POC Glucose 66 L Radiography Diagnostic Testing: Clinical Impression(s) from Imaging Studies Chest X-Ray 07/26/21 22:10 IMPRESSION: Chronically coarsened markings of the lung bases complicates evaluation for overlying infiltrate. Electronically Signed: Zeferino Ansari MD at 22:38 EST Tel , Service support , Discharge Plan Triage Chief Complaint: Hypoglycemia ED Provider: Adonay Watts Dx/Rx/DC Orders Clinical Impression: Hypoglycemia, Chronic kidney insufficiency, Influenza A Prescriptions: No Action sertraline 100 MG tablet 100 mg PO QHS RF: 0 glimepiride 4 MG tablet 4 mg PO QHS RF: 0 finasteride 5 MG tablet 5 mg PO QHS RF: 0 Lovastatin [Mevacor] 40 MG tablet 40 mg PO QHS RF: 0 prednisone 10 MG tablet 10 mg PO BID PRN (Reason: Pain) RF: 0 aspirin 81 MG Tab.Chew 81 mg PO QHS RF: 0 fluticasone propionate 1 SPRAY Nasal.Sry 2 spray NASAL QHS RF: 0 Olopatadine Hcl [Patanol] 1 DROP bottle 1 drp Each Eye BID PRN (Reason: Itching) RF: 0 ciprofloxacin HCl 250 MG tablet 250 mg PO BID Qty: 14 RF: 0 tramadol 50 MG tablet 50 mg PO Q6H PRN PRN (Reason: Pain) Qty: 14 RF: 0 Primary Care Provider: Zeferino Bryson Referrals: Zeferino Bryson MD [Primary Care Provider] - Disposition Disposition: Acute Care Hospital [facility]
[2021-07-27] VITALS (18 sets, daily range): BP systolic 96–129; BP diastolic 48–77; PULSE 72–89; RESP 14–22; TEMP 36.7–38.3; O2SAT 92–100; BMI 21.4
[2021-07-27] MEDS: Sodium Chloride 19.25 MEQ in Dextrose 10%-Water 250 ML 20 MEQ IV (00:10)
--- NOTE | 2021-07-27 00:14 | PCM.HP.STD ---
HPI - General HPI Narrative HAIM MICHAEL, is a 81 M who presents to the emergency room by squad due to hypoglycemia. This patient is well-known to me and has been my patient for years. He has had recent episodes of hypoglycemia and we have adjusted his diabetes medications to reduce this risk. However the patient is significantly hard of hearing and at times has difficulty understanding directions. Patient also presented with a fever but denies chest pain, shortness of breath and/or nausea or vomiting. Laboratory studies are remarkable for an elevated lactic acid at 2.4 and microbiology test positive for influenza A, Covid test was negative. It is reasonable to suspect that the patient's recent influenza illness has caused him to eat less and led to this hypoglycemia event with a blood sugar in the 30s and difficult to arouse by his spouse at home. It is unclear how much he is actually eating as well. Despite an amp of D50 the patient's sugar continued to decrease after it initially arose to 200. He will be admitted for observation to maintain stable blood sugar prior to discharge. [facility] Medical History Former smoker Hyperlipidemia Sleep apnea Type 2 diabetes mellitus Home Medications Lovastatin [Mevacor] 40 mg PO QHS 08/08/17 [History Last Taken Unknown] Olopatadine Hcl [Patanol] 1 drp EACH EYE BID PRN 08/08/17 [History Last Taken Unknown] aspirin 81 mg PO QHS 08/08/17 [History Last Taken Unknown] finasteride 5 mg PO QHS 08/08/17 [History Last Taken Unknown] fluticasone propionate 2 spray NASAL QHS 08/08/17 [History Last Taken Unknown] glimepiride 4 mg PO QHS 08/08/17 [History Last Taken Unknown] prednisone 10 mg PO BID PRN 08/08/17 [History Last Taken Unknown] sertraline 100 mg PO QHS 08/08/17 [History Last Taken Unknown] ciprofloxacin HCl 250 mg PO BID #14 tab 08/09/17 [Rx Last Taken Unknown] tramadol 50 mg PO Q6H PRN PRN #14 tab 08/09/17 [Rx Last Taken Unknown] Allergy/AdvReac Type Severity Reaction Status Date / Time No Known Allergies Allergy Verified 02/02/21 22:37 Social History Smoking Status: Former smoker ROS Constitutional Constitutional: Reports fever(s); Denies anorexia or chills Eyes Eyes: Denies blurry vision ENT HEENT: Reports abnormal hearing and hearing loss; Denies loss taste/smell Cardiovascular Cardiovascular: Denies chest pain Respiratory/Chest Respiratory/Chest: Denies cough Gastrointestinal Gastrointestinal: Denies abdominal pain Genitourinary Genitourinary: Denies dysuria Musculoskeletal Musculoskeletal: Denies back pain Integumentary Integumentary: Denies dry skin Neurologic Neurologic: Denies abnormal speech Psychiatric Psychiatric: Reports anxiety Vital Signs Vital Signs Vital Signs: 07/26/21 21:28 07/26/21 21:37 07/26/21 22:28 Temperature 103.1 F H 103.1 F H Temperature Source Oral Temporal Pulse Rate 106 H 106 H 97 Respiratory Rate 19 H 18 15 Respiratory Effort Respiratory Pattern Blood Pressure 129/81 H 129/81 H 129/67 H Blood Pressure Mean 97 97 87 Pulse Ox 91 96 95 Oxygen Delivery Method Room Air Room Air Room Air 07/26/21 22:37 07/26/21 22:59 07/26/21 23:00 Temperature 101.5 F H 99.7 F H Temperature Source Oral Oral Pulse Rate 97 97 Respiratory Rate 16 19 H Respiratory Effort Normal Non-Labored Respiratory Pattern Normal Blood Pressure 129/67 H 105/53 L Blood Pressure Mean 87 70 Pulse Ox 95 96 Oxygen Delivery Method Room Air Room Air Weight Weight: 154 lb 5.177 oz Body Mass Index (BMI) 22.8 Physical Exam Const alert General Appearance: cooperative HEENT head/scalp atraumatic Eyes PERRL Neck supple Lymph Lymphatic: no lymphadenopathy noted Resp normal respiratory effort and clear to auscultation bilaterally Cardio regular rate, regular rhythm, S1 normal heart sound and S2 normal heart sound GI normal to inspection, nondistended, normoactive bowel sounds Extremity normal capillary refill Skin General Skin Exam: turgor normal Neuro CN's II-XII intact bilaterally Psych affect normal Results Lab / Micro Data Result Diagrams: 07/26/21 21:50 07/26/21 21:50 Labs: Laboratory Results - last 24 hr 07/26/21 21:43: POC Glucose 96 07/26/21 21:50: WBC 6.4, RBC 3.40 L, Hgb 10.4 L, Hct 31.7 L, MCV 93.2, MCH 30.6, MCHC 32.8, RDW Std Deviation 43.9, RDW Coeff of Ulises 12.9, Plt Count 104 L, MPV 10.3, Immature Gran % (Auto) 0.800, Neut % (Auto) 94.6 H, Lymph % (Auto) 2.3 L, [place] % (Auto) 1.6, Eos % (Auto) 0.5, Baso % (Auto) 0.2, Absolute Neuts (auto) 6.1, Absolute Lymphs (auto) 0.15 L, Nucleated RBC % 0, Differential Comment SCANNED 07/26/21 21:50: Sodium 138, Potassium 3.5, Chloride 106, Carbon Dioxide 26.0, Anion Gap 6, BUN 22 H, Creatinine 1.81 H, Estim Creat Clear Calc 32.77, Est GFR (MDRD) Af Amer 47 L, Est GFR (MDRD) Non-Af 39 L, BUN/Creatinine Ratio 12.2, Glucose 77, Calcium 8.8, Magnesium 2.1, Troponin I High Sens 13 07/26/21 21:50: Lactic Acid 2.4 H* 07/26/21 23:15: POC Glucose 66 L Micro: Microbiology 07/26/21 22:20 Mucosa - Nose Influenza Types A,B Direct FA (JANESSA) - Final Influenzae A 07/26/21 21:50 Nasal Secretion SARS-CoV-2 Antigen (Rapid) - Final Radiology Impression Chest X-Ray 07/26/21 22:10 IMPRESSION: Chronically coarsened markings of the lung bases complicates evaluation for overlying infiltrate. Electronically Signed: Zeferino Ansari MD at 22:38 EST Tel , Service support , Assessment & Plan Assessment/Plan (1) Hypoglycemia associated with type 2 diabetes mellitus: (2) Influenza A: (3) Chronic kidney insufficiency: PLAN: 1. Hypoglycemia secondary to diabetes and questionable what medication he actually took this evening?admit patient to general medical floor, continue D10 drip initiated in the emergency room monitor glucose every 1 hour overnight, repeat BMP in the morning 2. Influenza A maintain isolation 3. Chronic kidney insufficiency?patient will be receiving hydration overnight 4. DVT prophylaxis?SCDs Charges/Coding Visit Charges OBSV E&M: 22437 Initial observation care L2
[2021-07-27] MEDS: Dextrose 50%-Water 25 GM/50 ML DISP.SYRIN IV ×15 (00:22→16:20)
[2021-07-27 00:40] LABS: Bedside Glucose 21 mg/dL (70-110)
[2021-07-27 01:11] LABS: Bedside Glucose 56 mg/dL (70-110)
[2021-07-27 01:26] LABS: Bedside Glucose 83 mg/dL (70-110)
[2021-07-27 01:35] LABS: Mucous, Urine 0 SEEN /hpf (<or=2+); Red Blood Cells-Urine 0 SEEN /hpf (0-5); Squamous Epithelial Cells - UA 0 SEEN /hpf (0-5); White Blood Cells 0 SEEN /hpf (0-5)
[2021-07-27 01:36] LABS: Color, Urine Yellow (Yellow); Glucose, Dipstick Normal (Normal); Ketone-Dipstick Negative (Negative); Leukocyte Esterase-Dipstick Negative /ul (Negative); Nitrite-Dipstick Negative (Negative); Occult Blood-Urine 25 /ul (Negative); Protein-Dipstick 15 mg/dl (Negative); Specific Gravity, Urine 1.015 (1.002-1.030); Urine Bilirubin Dipstick Negative (Negative); Urine Clarity Clear (Clear); Urine Urobilinogen Normal (Normal)
--- NOTE | 2021-07-27 01:59 | PCS.PANDOC ---
PANDEMIC DOCUMENTATION INITIATED: Date: 04/12/2021 Time: 190
--- NOTE | 2021-07-27 02:01 | NURSING ---
Pt states he got three covid vaccines.
[2021-07-27 02:10] LABS: Reflex Lactate? Y
[2021-07-27] MEDS: 0.9% Saline Lock 10 ML Syringe IV ×4 (02:11→21:15)
[2021-07-27 02:20] LABS: Bacteria RARE /hpf (None Seen)
[2021-07-27 02:46] LABS: Bedside Glucose 151 mg/dL (70-110)
[2021-07-27 02:46] LABS: Bedside Glucose 50 mg/dL (70-110)
[2021-07-27 03:01] LABS: Bedside Glucose 121 mg/dL (70-110)
[2021-07-27 03:04] LABS: Absolute Lymphocyte Count 0.22 X10^3/uL (0.83-4.51); Absolute Neutrophil Count 6.7 X10^3/uL (2.0-7.7); Basophil# 0.01 X10^3/uL; Basophil% 0.1 % (0-1); Eosinophil# 0.02 X10^3/uL; Eosinophils% 0.3 % (0-5); Hematocrit 31.7 % (40-54); Hemoglobin 10.4 g/dL (13.0-16.5); Lymphocyte # 0.22 X10^3/ul (0.83-4.51); Lymphocyte % 2.9 % (19-41); Mean Corp Hgb Conc 32.8 g/dL (32-36); Mean Corpuscular Hgb 30.8 pg (27.0-32.0); Mean Corpuscular Volume 93.8 fL (80-94); Mean Platelet Vol. 10.1 fl (6.2-12.0); Monocyte# 0.63 X10^3/uL; Monocyte% 8.3 % (0-10); NRBC Flagged by Analyzer 0 % (0-5); Neutrophil # 6.68 X10^3/uL (2.7-7.7); Neutrophil % 87.7 % (47-70); POSITIVE DIFFERENTIAL YES; Platelet Count 103 K/mm3 (150-450); RBC Distribution Width CV 12.9 % (11.6-14.6); RBC Distribution Width SD 44.6 fl (35.1-43.9); Red Blood Count 3.38 M/mm3 (4.6-6.2); White Blood Count 7.6 K/mm3 (4.4-11.0)
[2021-07-27 03:06] LABS: Differential Indicated SCAN CRITERIA MET
[2021-07-27 03:17] LABS: Anion Gap 9 (5-15); BUN 21 mg/dL (7-18); BUN/Creat Ratio 11.6 RATIO (10-20); Calcium,Total 8.7 mg/dL (8.5-10.1); Chloride 104 mmol/L (98-107); Creatinine, Serum 1.81 mg/dL (0.70-1.30); EST Glomerular Filtration Rate 39 mL/min (>60); Est Glom Filt Rate - Afr Amer 47 mL/min (>60); Estimated Creatinine Clearance 30.85 ml/min; Glucose 97 mg/dL (74-106); Potassium 3.6 mmol/L (3.5-5.1); Sodium Level 138 mmol/L (136-145)
[2021-07-27 03:26] LABS: Bedside Glucose 69 mg/dL (70-110)
[2021-07-27 03:46] LABS: Bedside Glucose 67 mg/dL (70-110)
[2021-07-27 03:52] LABS: Lactic Acid 2.9 mmol/L (0.4-1.9)
[2021-07-27 04:21] LABS: Bedside Glucose 65 mg/dL (70-110)
[2021-07-27 04:46] LABS: Bedside Glucose 76 mg/dL (70-110)
[2021-07-27 05:21] LABS: Bedside Glucose 61 mg/dL (70-110)
[2021-07-27] MEDS: Sodium Chloride 19.25 MEQ in Dextrose 10%-Water 250 ML 75 MEQ IV (05:30)
[2021-07-27 05:51] LABS: Bedside Glucose 62 mg/dL (70-110)
[2021-07-27 06:11] LABS: Bedside Glucose 56 mg/dL (70-110)
[2021-07-27 06:25] LABS: Bedside Glucose 130 mg/dL (70-110)
[2021-07-27 06:46] LABS: Bedside Glucose 78 mg/dL (70-110)
[2021-07-27 07:11] LABS: Bedside Glucose 39 mg/dL (70-110)
[2021-07-27 07:11] LABS: Bedside Glucose 158 mg/dL (70-110)
[2021-07-27 07:11] LABS: Bedside Glucose 71 mg/dL (70-110)
[2021-07-27 08:31] LABS: Bedside Glucose 53 mg/dL (70-110)
[2021-07-27 08:31] LABS: Bedside Glucose 56 mg/dL (70-110)
[2021-07-27] MEDS: Sodium Chloride 19.25 MEQ in Dextrose 10%-Water 250 ML 100 MEQ IV ×6 (08:55→23:19)
[2021-07-27 09:15] LABS: Bedside Glucose 72 mg/dL (70-110)
[2021-07-27 10:01] LABS: Bedside Glucose 43 mg/dL (70-110)
[2021-07-27 10:30] LABS: Bedside Glucose 77 mg/dL (70-110)
[2021-07-27 11:36] LABS: Bedside Glucose 47 mg/dL (70-110)
[2021-07-27 12:16] LABS: Bedside Glucose 49 mg/dL (70-110)
[2021-07-27 13:05] LABS: Bedside Glucose 66 mg/dL (70-110)
--- NOTE | 2021-07-27 13:13 | PN.HOSP_ITS ---
Documented by User: John Paul MCMILLAN 07/27/21 13:16 Hospitalist Note Patient is a 81-year-old male who presented to the ED on the morning of 07/27/2021 for chief complaint of hypoglycemia. Patient is a longtime patient of Dr. Bryson who recently adjusted patient's diabetic medication due to recent episodes of hypoglycemia. Admitting physician believe that patient may have taken his medications and appropriately and attributes that to his hypoglycemia. Patient is on D10 drip and has as needed D50. Patient also tested positive for influenza A and was initiated on Tamiflu. Patient seen by John Paul Law PA-C, under the supervision of Dr. Graves. Documented by User: Dr. Brenden Graves MD 07/27/21 13:19 Procedures Hospitalists Procedures: 87222 Prolonged InPt Service; first hour A/P Addt'l Comments Addt'l Comments This patient was seen in conjunction with John Paul Law PA-C. I have independe ntly interviewed and examined the patient and reviewed pertinent historical, laboratory, and other data. Please refer to John Paul Law PA-C's note for details of this patient's presentation, findings, and recommendations. I have reviewed John Paul Law PA-C's note and concur with documented findings. In brief, patient is a 81-year-old gentleman with history of diabetes mellitus type 2 on Amaryl admitted after he was found unresponsive at home. Patient was found to be significantly hypoglycemic admitted to regular nursing floor where patient is currently being managed with D10 Physical Examination: GENERAL: cooperative HEENT: Atraumatic; EYES; Anicteric, Normal Conjunctiva NECK; supple, normal thyroid, RESPIRATORY: Diminished to auscultation CARDIOVASCULAR: Regular S1 S2, GI: soft, normoactive bowel sounds, : No Renal angle tenderness; EXTREMITIES: No edema, no clubbing, MUSCULOSKELETAL: no muscle waisting NEURO: Awake; no lateralizing signs. SKIN: No Rash PSYCH; Flat affect Assessment: 1. Diabetes mellitus type 2 2. Sulfonylurea induced hypoglycemia 3. Anemia of chronic disorder 4. BPH 5. Dyslipidemia 6. DVT prophylaxis Recommendations: 1. I have discussed the results of my overview and impressions with the patient 2. Options for management were reviewed Total time spent reviewing patient management orders including medications lab work and discussion with nursing staff and other providers involved in patient's care; 55
[2021-07-27 14:01] LABS: Bedside Glucose 71 mg/dL (70-110)
--- NOTE | 2021-07-27 15:10 | CASEMGMT ---
OFELIA RUSSELL assessment: Face to Face with patient for initial transition planning/care coordination assessment. OFELIA RUSSELL introduced self and role at [facility], pt voices understanding and consents to assessment. Pt is hard of hearing but A/Ox4 and answers questions appropriately. Pt is lying in bed in no distress on room air. Care providers, pharmacy, and demographics verified. Presentation: called EMS for pt being unresponsive and pt had sugar of 30 Admitting dx: Hypoglycemia PCP: [place] Specialists: Pt states no current specialists Preferred Pharmacy: [facility] Insurance: [employer] Prescription Benefit: [employer] Living Will/HPOA: Pt states has LW/HPOA and is aware that they are not on file at [facility]. LNOK: Claudia Messer, Living Arrangements: Pt lives with in 1 story home and states no concerns at home. Pt is independent with ADL's. Transportation: Pt states drives self some and states no transportation concerns. DME/HHC: Pt states has a cane and walker at home. Pt states no need for any further DME. Pt states no hx of HHC or SNF. Pt states no concerns with going home at time of discharge. Pt is retired. Pt states does not smoke cigarettes or drink ETOH. Pt states no further concerns/needs. CM to follow for any further discharge planning/needs. Advised pt to ask for CM if any further questions/concerns/needs arise, voices understanding. Pt Goal: Home Plan[place] OFELIA RUSSELL
[2021-07-27] MEDS: Oseltamivir Phosphate 30 MG Capsule PO ×2 (15:40→21:16)
[2021-07-27 15:41] LABS: Bedside Glucose 53 mg/dL (70-110)
[2021-07-27 15:41] LABS: Bedside Glucose 78 mg/dL (70-110)
[2021-07-27] MEDS: Acetaminophen 325 MG Tablet 650 MG PO (16:20)
[2021-07-27 16:41] LABS: Bedside Glucose 65 mg/dL (70-110)
[2021-07-27 17:25] LABS: Bedside Glucose 112 mg/dL (70-110)
[2021-07-27 18:16] LABS: Bedside Glucose 115 mg/dL (70-110)
[2021-07-27 19:06] LABS: Bedside Glucose 128 mg/dL (70-110)
[2021-07-27 20:26] LABS: Bedside Glucose 112 mg/dL (70-110)
[2021-07-27] MEDS: Fluticasone 0.05% 1 SPRAY NASAL.SRY 2 SPRAY NASAL (21:14)
[2021-07-27] MEDS: Atorvastatin Calcium 10 MG Tablet PO (21:14)
[2021-07-27] MEDS: Finasteride 5 MG Tablet PO (21:15)
[2021-07-27] MEDS: Sertraline 100 MG Tablet PO (21:16)
[2021-07-27 22:05] LABS: Bedside Glucose 107 mg/dL (70-110)
[2021-07-27 22:25] LABS: Bedside Glucose 129 mg/dL (70-110)
[2021-07-27 23:25] LABS: Bedside Glucose 132 mg/dL (70-110)
[2021-07-28] VITALS (10 sets, daily range): BP systolic 102–145; BP diastolic 49–74; PULSE 73–88; RESP 16–21; TEMP 36.9–37.9; O2SAT 94–97
[2021-07-28 00:25] LABS: Bedside Glucose 151 mg/dL (70-110)
[2021-07-28 01:35] LABS: Bedside Glucose 132 mg/dL (70-110)
[2021-07-28 02:26] LABS: Bedside Glucose 139 mg/dL (70-110)
[2021-07-28] MEDS: Sodium Chloride 19.25 MEQ in Dextrose 10%-Water 250 ML 50 MEQ IV ×2 (02:58→08:01)
[2021-07-28 03:35] LABS: Bedside Glucose 138 mg/dL (70-110)
[2021-07-28 04:36] LABS: Bedside Glucose 143 mg/dL (70-110)
[2021-07-28 05:36] LABS: Bedside Glucose 133 mg/dL (70-110)
[2021-07-28 06:34] LABS: Anion Gap 8 (5-15); BUN 18 mg/dL (7-18); BUN/Creat Ratio 10.4 RATIO (10-20); Calcium,Total 8.2 mg/dL (8.5-10.1); Chloride 107 mmol/L (98-107); Creatinine, Serum 1.73 mg/dL (0.70-1.30); EST Glomerular Filtration Rate 41 mL/min (>60); Est Glom Filt Rate - Afr Amer 49 mL/min (>60); Estimated Creatinine Clearance 32.27 ml/min; Glucose 159 mg/dL (74-106); Potassium 3.6 mmol/L (3.5-5.1); Sodium Level 139 mmol/L (136-145)
[2021-07-28 06:41] LABS: Bedside Glucose 152 mg/dL (70-110)
[2021-07-28 08:26] LABS: Bedside Glucose 169 mg/dL (70-110)
[2021-07-28] MEDS: Oseltamivir Phosphate 30 MG Capsule PO ×2 (11:11→20:57)
--- NOTE | 2021-07-28 11:22 | PCM.DC ---
Discharge Instructions Diet Discharge Diet: No restrictions Activity Discharge Activity: Return to Normal Activity Weight Bearing Status: Weight bearing as tolerated Dressing / Incision Call your doctor if you observe: Fever of 101 or Higher, Numbness or Tingling, Shortness of breath, Dizziness, Chest pain, Increased palpitations (irregular heartbeat) and Calf discomfort Follow Up Care Please Follow Up With: Primary care provider When: Within the next two weeks. Test Results: Test results from this visit will be discussed in further detail at your follow-up appointment, if applicable. Discharge Plan Admission Admit Date/Time: 07/27/21 14:26 Primary Reason for Your Visit: Hypoglycemia Attending Provider: Brenden Graves Primary Care Provider: Zeferino Bryson Discharge Orders/Prescriptions Prescriptions: New oseltamivir [Tamiflu] 30 mg capsule 30 mg PO BID 4 Days Qty: 8 RF: 0 Continued sertraline 100 MG tablet 100 mg PO QHS RF: 0 finasteride 5 MG tablet 5 mg PO QHS RF: 0 Lovastatin [Mevacor] 40 MG tablet 40 mg PO QHS RF: 0 prednisone 10 MG tablet 10 mg PO BID PRN (Reason: Pain) RF: 0 aspirin 81 MG tablet,chewable 81 mg PO QHS RF: 0 fluticasone propionate 1 SPRAY spray,suspension 2 spray NASAL QHS RF: 0 Olopatadine Hcl [Patanol] 1 DROP bottle 1 drp Each Eye BID PRN (Reason: Itching) RF: 0 ciprofloxacin HCl 250 MG tablet 250 mg PO BID Qty: 14 RF: 0 tramadol 50 MG tablet 50 mg PO Q6H PRN PRN (Reason: Pain) Qty: 14 RF: 0 Held glimepiride 4 MG tablet 4 mg PO QHS RF: 0 Hold Instructions: Resume on 08/11/21. Hold your glimeperide until you can have a follow up appointment with Dr. Bryson. Referrals / Follow Up: Zeferino Bryson MD [Primary Care Provider] - 08/05/21 9:10 am Disposition Disposition (needs filled in before D/C Order can be placed): Home, Self Care
[2021-07-28 11:25] LABS: Bedside Glucose 132 mg/dL (70-110)
[2021-07-28 15:11] LABS: Bedside Glucose 131 mg/dL (70-110)
--- NOTE | 2021-07-28 15:25 | PN.HOSP_ITS ---
Documented by User: John Paul MCMILLAN 07/28/21 15:34 Subjective Subjective Patient is a 81-year-old male comfortably resting in bed, alert and orient x3. Patient denies development of any new complaints overnight. Denies chest pain, shortness of breath, palpitations, hemoptysis, sputum production, fever, chills, N/V/D. Does not appear in acute distress. Objective Data Objective Data Vital Signs: Vital Signs Temp Pulse Resp BP Pulse Ox 98.4 F 75 16 102/49 L 97 07/28/21 15:08 07/28/21 15:08 07/28/21 15:08 07/28/21 15:08 07/28/21 15:08 Oxygen Delivery Method Room Air Weight: 145 lb 4.554 oz Body Mass Index (BMI) 21.4 Intake & Output: Intake and Output for Last 24 Hours 07/26/21 07/27/21 07/28/21 23:59 23:59 23:59 Intake Total 500 / 500 2923.6875 / 2923.6875 655.8325 / 655.8325 Output Total 600 / 600 400 / 400 Balance 500 / 500 2323.6875 / 2323.6875 255.8325 / 255.8325 Lab / Micro Data Result Diagrams: 07/27/21 02:52 07/28/21 05:20 Labs: Laboratory Results - last 24 hr 07/27/21 14:37: POC Glucose 53 L 07/27/21 15:36: POC Glucose 78 07/27/21 16:17: POC Glucose 65 L 07/27/21 17:16: POC Glucose 112 H 07/27/21 18:11: POC Glucose 115 H 07/27/21 18:59: POC Glucose 128 H 07/27/21 20:14: POC Glucose 112 H 07/27/21 21:12: POC Glucose 107 07/27/21 22:20: POC Glucose 129 H 07/27/21 23:20: POC Glucose 132 H 07/28/21 00:08: POC Glucose 151 H 07/28/21 01:32: POC Glucose 132 H 07/28/21 02:21: POC Glucose 139 H 07/28/21 03:32: POC Glucose 138 H 07/28/21 04:31: POC Glucose 143 H 07/28/21 05:20: Sodium 139, Potassium 3.6, Chloride 107, Carbon Dioxide 24.0, Anion Gap 8, BUN 18, Creatinine 1.73 H, Estim Creat Clear Calc 32.27, Est GFR (MDRD) Af Amer 49 L, Est GFR (MDRD) Non-Af 41 L, BUN/Creatinine Ratio 10.4, Glucose 159 H, Calcium 8.2 L 07/28/21 05:28: POC Glucose 133 H 07/28/21 06:35: POC Glucose 152 H 07/28/21 08:19: POC Glucose 169 H 07/28/21 11:20: POC Glucose 132 H 07/28/21 15:04: POC Glucose 131 H Micro: Microbiology 07/26/21 22:20 Mucosa - Nose Influenza Types A,B Direct FA (JANESSA) - Final Influenzae A 07/26/21 21:50 Nasal Secretion SARS-CoV-2 Antigen (Rapid) - Final Physical Exam Const alert, oriented x3 and no apparent distress Constitutional Narrative: Alert and oriented although very hard of hearing. HEENT head/scalp atraumatic and moist oral mucous membranes Head and Scalp: normocephalic Eyes PERRL, EOMs intact bilaterally and conjunctivae normal Neck no lymphadenopathy, supple and no JVD Resp normal respiratory effort, no retractions, no use of accessory muscles and clear to auscultation bilaterally Cardio regular rate, regular rhythm, no murmurs and no JVD GI normal to inspection, nondistended, normoactive bowel sounds, soft to palpation and non-tender Extremity normal to inspection, full ROM and no clubbing, cyanosis or edema Peripheral Pulses: Yes pulses 2+ throughout Skin no rashes or lesions noted, no wounds, skin turgor normal and no jaundice Neuro CN's II-XII intact bilaterally Neuro Narrative: Alert and oriented although very hard of hearing. Psych affect normal Assessment & Plan Assessment/Plan (1) Influenza A: (2) Hypoglycemia associated with type 2 diabetes mellitus: PLAN: Day 1 Discharge planning: Possible discharge home tomorrow 07/29/2021. 1) hypoglycemia with DM2 glucose currently 131. Patient was admitted on D10 drip and received several amps of D50 yesterday. D10 infusion has been discontinued as well as patient's glimepiride. Currently observing overnight after discussion with patient's daughter who is a family physician. Patient follows with Dr. Bryson, who on admission thought that patient had inappropriately taking his glimepiride. Patient's daughter is adamant that she threw away all of patient's glimepiride and is concerned that this is not the cause of his hypoglycemia. Recommend sulfonylurea level and insulin level be obtained as an outpatient. 2) influenza A Tamiflu initiated through 07/31/2021. Vital signs stable and patient is afebrile. 3) BPH Continue Proscar. 4) hyperlipidemia Continue statin. 5) depression Continue Zoloft. DVT prophylaxis - SCDs Patient seen by John Paul Law PA-C, under the supervision of Dr. Graves. Documented by User: Dr. Brenden Graves MD 07/28/21 16:02 Objective Data Lab / Micro Data Result Diagrams: 07/27/21 02:52 07/28/21 05:20 Assessment & Plan Addt'l Comments This patient was seen in conjunction with John Paul Law PA-C. I have independently interviewed and examined the patient and reviewed pertinent historical, laboratory, and other data. Please refer to John Paul Law PA-C's note for details of this patient's presentation, findings, and recommendations. I have reviewed John Paul Law PA-C's note and concur with documented findings. In brief, patient is a 81-year-old gentleman with history of diabetes mellitus type 2 on Amaryl admitted after he was found unresponsive at home. Patient was found to be significantly hypoglycemic admitted to regular nursing floor where patient is currently being managed with D10 07/28/2021. Had a discussion with patient's daughter who happens to be an pipe smoking machine offbearer regarding her condition. Patient daughter did confirm about getting rid of patient's glimepiride 4 days prior to patient's admission. Subsequently ordered for sulfonylurea as well as insulin level (to rule out other causes including insulinoma) Physical Examination: GENERAL: cooperative HEENT: Atraumatic; EYES; Anicteric, Normal Conjunctiva NECK; supple, normal thyroid, RESPIRATORY: Diminished to auscultation CARDIOVASCULAR: Regular S1 S2, GI: soft, normoactive bowel sounds, : No Renal angle tenderness; EXTREMITIES: No edema, no clubbing, MUSCULOSKELETAL: no muscle waisting NEURO: Awake; no lateralizing signs. SKIN: No Rash PSYCH; Flat affect Assessment: 1. Diabetes mellitus type 2 2. Sulfonylurea induced hypoglycemia 3. Anemia of chronic disorder 4. BPH 5. Dyslipidemia 6. Chronic kidney disease stage III 7. DVT prophylaxis Recommendations: 1. I have discussed the results of my overview and impressions with the patient 2. Options for management were reviewed Charges/Coding Visit Charges Inpatient E&M: 45743 Subs Hosp L3
--- NOTE | 2021-07-28 15:33 | NURSING ---
Niece, Dre Andreea, will be calling in 07/29 for update & possibly with rock picker patient if discharged. Per son, Brenden, ramirezay to share information with her.
[2021-07-28 17:11] LABS: Bedside Glucose 152 mg/dL (70-110)
[2021-07-28] MEDS: Atorvastatin Calcium 10 MG Tablet PO (20:57)
[2021-07-28] MEDS: Fluticasone 0.05% 1 SPRAY NASAL.SRY 2 SPRAY NASAL (20:57)
[2021-07-28] MEDS: Finasteride 5 MG Tablet PO (20:57)
[2021-07-28] MEDS: 0.9% Saline Lock 10 ML Syringe IV (20:57)
[2021-07-28] MEDS: Sertraline 100 MG Tablet PO (20:58)
[2021-07-28 21:20] LABS: Bedside Glucose 181 mg/dL (70-110)
[2021-07-29 01:46] LABS: Bedside Glucose 166 mg/dL (70-110)
[2021-07-29 03:00] VITALS: PULSE 71
[2021-07-29 03:15] VITALS: BP 132/70; PULSE 72; RESP 16; TEMP 37.3; O2SAT 94
[2021-07-29 04:55] LABS: Bedside Glucose 159 mg/dL (70-110)
[2021-07-29 06:57] VITALS: O2SAT 97
[2021-07-29 07:00] VITALS: PULSE 65
[2021-07-29 09:15] VITALS: BP 117/73; PULSE 79; RESP 18; TEMP 37; O2SAT 96
[2021-07-29] MEDS: Oseltamivir Phosphate 30 MG Capsule PO (09:58)
[2021-07-29 10:40] LABS: Bedside Glucose 164 mg/dL (70-110)
[2021-07-29 11:00] VITALS: BP 117/73; PULSE 69; PULSE 79; RESP 18; TEMP 37; O2SAT 96
[2021-07-29 11:07] LABS: Insulin 36.7 mU/L (2.6-37.6)
--- NOTE | 2021-07-29 11:14 | PHA.DC.MR ---
Pharmacy Service has performed discharge medication reconciliation for this patient. Home Medications Lovastatin [Mevacor] 40 mg PO QHS 08/08/17 Olopatadine Hcl [Patanol] 1 drp EACH EYE BID PRN 08/08/17 aspirin 81 mg PO QHS 08/08/17 finasteride 5 mg PO QHS 08/08/17 fluticasone propionate 2 spray NASAL QHS 08/08/17 prednisone 10 mg PO BID PRN 08/08/17 sertraline 100 mg PO QHS 08/08/17 ciprofloxacin HCl 250 mg PO BID #14 tab 08/09/17 tramadol 50 mg PO Q6H PRN PRN #14 tab 08/09/17 oseltamivir [Tamiflu] 30 mg PO BID 4 Days #8 cap 07/28/21 The patient's discharge medication list was reviewed for discrepancies and discrepancies were resolved.
--- NOTE | 2021-07-29 11:27 | PCM.DC ---
Discharge Instructions Diet Discharge Diet: No restrictions Activity Weight Bearing Status: Weight bearing as tolerated Dressing / Incision Call your doctor if you observe: Fever of 101 or Higher, Numbness or Tingling, Shortness of breath, Dizziness, Chest pain, Increased palpitations (irregular heartbeat) and Calf discomfort Follow Up Care Please Follow Up With: Zeferino Bryson When: 1-2 weeks Test Results: Test results from this visit will be discussed in further detail at your follow-up appointment, if applicable. Discharge Plan Admission Admit Date/Time: 07/27/21 14:26 Primary Reason for Your Visit: Hypoglycemia Attending Provider: Brenden Graves Primary Care Provider: Zeferino Bryson Discharge Orders/Prescriptions Prescriptions: New oseltamivir [Tamiflu] 30 mg capsule 30 mg PO BID 4 Days Qty: 8 RF: 0 Continued sertraline 100 MG tablet 100 mg PO QHS RF: 0 finasteride 5 MG tablet 5 mg PO QHS RF: 0 Lovastatin [Mevacor] 40 MG tablet 40 mg PO QHS RF: 0 prednisone 10 MG tablet 10 mg PO BID PRN (Reason: Pain) RF: 0 aspirin 81 MG tablet,chewable 81 mg PO QHS RF: 0 fluticasone propionate 1 SPRAY spray,suspension 2 spray NASAL QHS RF: 0 Olopatadine Hcl [Patanol] 1 DROP bottle 1 drp Each Eye BID PRN (Reason: Itching) RF: 0 ciprofloxacin HCl 250 MG tablet 250 mg PO BID Qty: 14 RF: 0 tramadol 50 MG tablet 50 mg PO Q6H PRN PRN (Reason: Pain) Qty: 14 RF: 0 Discontinued glimepiride 4 MG tablet 4 mg PO QHS RF: 0 Hold Instructions: Resume on 08/11/21. Hold your glimeperide until you can have a follow up appointment with Dr. Bryson. Referrals / Follow Up: Zeferino Bryson MD [Primary Care Provider] - 08/05/21 9:10 am Disposition Disposition (needs filled in before D/C Order can be placed): Home, Self Care
--- NOTE | 2021-07-29 11:30 | PCM.DC.SUM ---
Documented by User: JEM Campos 07/29/21 11:35 Providers Date of Admission: 07/27/21 Primary Care Physician: Dr. Zeferino Bryson MD Reason For Visit: HYPOGLYCEMIA Diagnosis Discharge Diagnosis (1) Influenza A: Status: Acute Code(s): J10.1 - Influenza due to other identified influenza virus with other respiratory manifestations (2) Hypoglycemia associated with type 2 diabetes mellitus: Status: Acute Code(s): E11.649 - Type 2 diabetes mellitus with hypoglycemia without coma Medications at Discharge Home Medications Lovastatin [Mevacor] 40 mg PO QHS 08/08/17 Olopatadine Hcl [Patanol] 1 drp EACH EYE BID PRN 08/08/17 aspirin 81 mg PO QHS 08/08/17 finasteride 5 mg PO QHS 08/08/17 fluticasone propionate 2 spray NASAL QHS 08/08/17 prednisone 10 mg PO BID PRN 08/08/17 sertraline 100 mg PO QHS 08/08/17 ciprofloxacin HCl 250 mg PO BID #14 tab 08/09/17 tramadol 50 mg PO Q6H PRN PRN #14 tab 08/09/17 oseltamivir [Tamiflu] 30 mg PO BID 4 Days #8 cap 07/28/21 Hospital Course Operations None Procedures None Summary of Care Provided Minutes Spent on Discharge: 35 Hospital Course: Patient is a 81-year-old male who originally presented for hypoglycemia. Patient had recently been taken off of glimepiride. Patient's blood sugars have stabilized patient has not received any IV fluids with dextrose in them for at least 24 hours. Insulin level as well as sulfonylurea level ordered at the request of patient's daughter who is a family medicine physician. Insulin level was within normal limits. Sulfonylurea level is a send out and will take approximately 3 days for results. Patient was also noted to have influenza A and was initiated on Tamiflu which will complete on 07/31/2021. Physical Exam Const alert, oriented x3 and no apparent distress General Appearance: cooperative HEENT normocephalic and head/scalp atraumatic Eyes conjunctivae normal and no scleral icterus Neck supple General: trachea midline Resp normal respiratory effort, normal air movement and clear to auscultation bilaterally Cardio regular rate, regular rhythm, S1 normal heart sound, S2 normal heart sound and peripheral pulses 2+ throughout GI normal to inspection, nondistended, normoactive bowel sounds, soft to palpation and non-tender Extremity normal capillary refill and no clubbing, cyanosis or edema General Extremity: no tenderness to palpation of joints or extremities Skin skin turgor normal General Skin Exam: no breakdown Lesions: no lesions Rashes: no rashes Neuro oriented x3, moves all extremities, no focal motor deficits and no sensory deficits noted Speech: speech normal Motor Exam: Negative for general weakness Psych affect normal Appearance: appropriate Weight / BMI Weight Weight: 145 lb 4.554 oz Body Mass Index (BMI) 21.4 ABG / Lab / Microbiology Data Result Diagrams: 07/27/21 02:52 07/28/21 05:20 Laboratory: Laboratory Results - last 24 hr 07/28/21 15:04: POC Glucose 131 H 07/28/21 17:06: POC Glucose 152 H 07/28/21 20:56: POC Glucose 181 H 07/29/21 01:39: POC Glucose 166 H 07/29/21 04:53: POC Glucose 159 H 07/29/21 09:46: POC Glucose 164 H 07/29/21 10:25: Insulin Level 36.7 Microbiology: Microbiology 07/26/21 22:20 Mucosa - Nose Influenza Types A,B Direct FA (JANESSA) - Final Influenzae A 07/26/21 21:50 Nasal Secretion SARS-CoV-2 Antigen (Rapid) - Final D/C Instructions Discharge Diet: No restrictions Weight Bearing Status: Weight bearing as tolerated Call your doctor if you observe: Fever of 101 or Higher, Numbness or Tingling, Shortness of breath, Dizziness, Chest pain, Increased palpitations (irregular heartbeat) and Calf discomfort Please Follow Up With: Zeferino Bryson When: 1-2 weeks Meaningful Use Info Meaningful Use Diagnoses (Choose all that apply): None applicable Discharge Plan Admission Admit Date/Time: 07/27/21 14:26 Primary Reason for Your Visit: Hypoglycemia Attending Provider: Brenden Graves Primary Care Provider: Zeferino Brysno Discharge Orders/Prescriptions Prescriptions: New oseltamivir [Tamiflu] 30 mg capsule 30 mg PO BID 4 Days Qty: 8 RF: 0 Continued sertraline 100 MG tablet 100 mg PO QHS RF: 0 finasteride 5 MG tablet 5 mg PO QHS RF: 0 Lovastatin [Mevacor] 40 MG tablet 40 mg PO QHS RF: 0 prednisone 10 MG tablet 10 mg PO BID PRN (Reason: Pain) RF: 0 aspirin 81 MG tablet,chewable 81 mg PO QHS RF: 0 fluticasone propionate 1 SPRAY spray,suspension 2 spray NASAL QHS RF: 0 Olopatadine Hcl [Patanol] 1 DROP bottle 1 drp Each Eye BID PRN (Reason: Itching) RF: 0 ciprofloxacin HCl 250 MG tablet 250 mg PO BID Qty: 14 RF: 0 tramadol 50 MG tablet 50 mg PO Q6H PRN PRN (Reason: Pain) Qty: 14 RF: 0 Discontinued glimepiride 4 MG tablet 4 mg PO QHS RF: 0 Hold Instructions: Resume on 08/11/21. Hold your glimeperide until you can have a follow up appointment with Dr. Bryson. Referrals / Follow Up: Zeferino Bryson MD [Primary Care Provider] - 08/05/21 9:10 am Disposition Disposition (needs filled in before D/C Order can be placed): Home, Self Care Documented by User: Dr. Brenden Graves MD 07/29/21 11:41 Providers Date of Admission: 07/27/21 Reason For Visit: HYPOGLYCEMIA Medications at Discharge Home Medications Lovastatin [Mevacor] 40 mg PO QHS 08/08/17 Olopatadine Hcl [Patanol] 1 drp EACH EYE BID PRN 08/08/17 aspirin 81 mg PO QHS 08/08/17 finasteride 5 mg PO QHS 08/08/17 fluticasone propionate 2 spray NASAL QHS 08/08/17 prednisone 10 mg PO BID PRN 08/08/17 sertraline 100 mg PO QHS 08/08/17 ciprofloxacin HCl 250 mg PO BID #14 tab 08/09/17 tramadol 50 mg PO Q6H PRN PRN #14 tab 08/09/17 oseltamivir [Tamiflu] 30 mg PO BID 4 Days #8 cap 07/28/21 Hospital Course Operations None Summary of Care Provided Hospital Course: This patient was seen in conjunction with JEM Campos . I have independently interviewed and examined the patient and reviewed pertinent historical, laboratory, and other data. Please refer to JEM Campos note for details of this patient's presentation, findings, and recommendations. I have reviewed JEM Campos note and concur with documented findings. n brief, patient is a 81-year-old gentleman with history of diabetes mellitus type 2 on Amaryl admitted after he was found unresponsive at home. Patient was found to be significantly hypoglycemic admitted to regular nursing floor where patient is currently being managed with D10 07/28/2021. Had a discussion with patient's daughter who happens to be an orchestra musician regarding her condition. Patient daughter did confirm about getting rid of patient's glimepiride 4 days prior to patient's admission. Subsequently ordered for sulfonylurea as well as insulin level (to rule out other causes including insulinoma)-patient insulin level came back within normal limits Physical Examination: GENERAL: cooperative HEENT: Atraumatic; EYES; Anicteric, Normal Conjunctiva NECK; supple, normal thyroid, RESPIRATORY: Diminished to auscultation CARDIOVASCULAR: Regular S1 S2, GI: soft, normoactive bowel sounds, : No Renal angle tenderness; EXTREMITIES: No edema, no clubbing, MUSCULOSKELETAL: no muscle waisting NEURO: Awake; no lateralizing signs. SKIN: No Rash PSYCH; Flat affect Assessment: 1. Diabetes mellitus type 2 2. Sulfonylurea induced hypoglycemia 3. Anemia of chronic disorder 4. BPH 5. Dyslipidemia 6. Chronic kidney disease stage III 7. DVT prophylaxis Hospital course; as documented above ABG / Lab / Microbiology Data Result Diagrams: 07/27/21 02:52 07/28/21 05:20 Discharge Plan Admission Admit Date/Time: 07/27/21 14:26 Primary Reason for Your Visit: Hypoglycemia Attending Provider: Brenden Graves Primary Care Provider: Zeferino Bryson Discharge Orders/Prescriptions Prescriptions: New oseltamivir [Tamiflu] 30 mg capsule 30 mg PO BID 4 Days Qty: 8 RF: 0 Continued sertraline 100 MG tablet 100 mg PO QHS RF: 0 finasteride 5 MG tablet 5 mg PO QHS RF: 0 Lovastatin [Mevacor] 40 MG tablet 40 mg PO QHS RF: 0 prednisone 10 MG tablet 10 mg PO BID PRN (Reason: Pain) RF: 0 aspirin 81 MG tablet,chewable 81 mg PO QHS RF: 0 fluticasone propionate 1 SPRAY spray,suspension 2 spray NASAL QHS RF: 0 Olopatadine Hcl [Patanol] 1 DROP bottle 1 drp Each Eye BID PRN (Reason: Itching) RF: 0 ciprofloxacin HCl 250 MG tablet 250 mg PO BID Qty: 14 RF: 0 tramadol 50 MG tablet 50 mg PO Q6H PRN PRN (Reason: Pain) Qty: 14 RF: 0 Discontinued glimepiride 4 MG tablet 4 mg PO QHS RF: 0 Hold Instructions: Resume on 08/11/21. Hold your glimeperide until you can have a follow up appointment with Dr. Bryson. Referrals / Follow Up: Zeferino Bryson MD [Primary Care Provider] - 08/05/21 9:10 am Disposition Disposition (needs filled in before D/C Order can be placed): Home, Self Care Charges/Coding Visit Charges Inpatient E&M: 30349 Subs Hosp Hospital Course Operations None
--- NOTE | 2021-07-29 12:26 | CASEMGMT ---
Per therapy, pt would benefit from OP therapy and pt states he would like [facility]. Script obtained and faxed to [facility]. Copy to pt. Pt voices no further questions/concerns/needs. Mainor GILBERT CM
[2021-07-29 12:30] LABS: Bedside Glucose 184 mg/dL (70-110)
== END 2021-07-29 15:07 | disposition home or self-care (01) | DRG 639 ==
LOC: ED 07-27 00:38 → PCU 07-27 01:39
PROVIDERS: Nurse Practitioner Family; Physician Assistant; Admitting Provider Family Medicine; Emergency Provider Emergency Medicine; PCP Family Medicine; Visit Provider Internal Medicine
DX: E11.649 Type 2 diabetes mellitus with hypoglycemia without coma (principal); D63.8 Anemia in other chronic diseases classified elsewhere; E11.22 Type 2 diabetes mellitus with diabetic chronic kidney disease; N18.32 Chronic kidney disease, stage 3b; E78.5 Hyperlipidemia, unspecified; N40.0 Benign prostatic hyperplasia without lower urinary tract symptoms; J10.1 Influenza due to other identified influenza virus with other respiratory manifestations; G47.30 Sleep apnea, unspecified; F32.A Depression, unspecified; Z87.891 Personal history of nicotine dependence; T38.3X5A Adverse effect of insulin and oral hypoglycemic [antidiabetic] drugs, initial encounter; Y92.9 Unspecified place or not applicable; H91.90 Unspecified hearing loss, unspecified ear; Z79.82 Long term (current) use of aspirin; Z79.84 Long term (current) use of oral hypoglycemic drugs; Z79.899 Other long term (current) drug therapy; Z23 Encounter for immunization
CPT/HCPCS: 36415; 71045; 80048; 81001; 82962; 83525; 83605; 83735; 84484; 85025; 87040; 87426; 87804; 93005; 96361; 96374; 96376; 97162; 97166; 99218; 99285; A4216; G0378

== ENCOUNTER → 2021-08-05 09:30 | Outpatient (CLI) | payer MEDICARE, SELFPAY ==
[2021-08-05 12:28] LABS: Hematocrit 34.2 % (40-54); Hemoglobin 11.1 g/dL (13.0-16.5); Mean Corp Hgb Conc 32.5 g/dL (32-36); Mean Corpuscular Hgb 29.9 pg (27.0-32.0); Mean Corpuscular Volume 92.2 fL (80-94); Mean Platelet Vol. 10.1 fl (6.2-12.0); Platelet Count 205 K/mm3 (150-450); RBC Distribution Width CV 12.4 % (11.6-14.6); RBC Distribution Width SD 41.9 fl (35.1-43.9); Red Blood Count 3.71 M/mm3 (4.6-6.2); White Blood Count 5.7 K/mm3 (4.4-11.0)
[2021-08-05 12:43] LABS: Anion Gap 5 (5-15); BUN 23 mg/dL (7-18); Calcium,Total 8.7 mg/dL (8.5-10.1); Chloride 107 mmol/L (98-107); Creatinine, Serum 1.64 mg/dL (0.70-1.30); EST Glomerular Filtration Rate 43 mL/min (>60); Est Glom Filt Rate - Afr Amer 52 mL/min (>60); Glucose 141 mg/dL (74-106); Sodium Level 140 mmol/L (136-145)
== END ==
PROVIDERS: PCP Family Medicine; Referring Provider Family Medicine; Visit Provider Family Medicine
DX: E16.2 Hypoglycemia, unspecified (principal); J11.1 Influenza due to unidentified influenza virus with other respiratory manifestations
CPT/HCPCS: 36415; 80048; 85027

== ENCOUNTER → 2022-05-16 | Outpatient (CLI) | payer MEDICARE, SELFPAY ==
[2022-05-16 19:06] LABS: Anion Gap 6 (5-15); BUN 27 mg/dL (7-18); Calcium,Total 8.6 mg/dL (8.5-10.1); Chloride 106 mmol/L (98-107); EST Glomerular Filtration Rate 48 mL/min (>60); Est Glom Filt Rate - Afr Amer 58 mL/min (>60); Glucose 142 mg/dL (74-106); Potassium 4.1 mmol/L (3.5-5.1); Sodium Level 140 mmol/L (136-145)
[2022-05-16 23:46] LABS: Xtra Tube EP Lab EXTRA TUBE
== END | disposition home or self-care (01) ==
LOC: MFPLAB 15:42
PROVIDERS: PCP Family Medicine; Visit Provider Family Medicine
DX: R55 Syncope and collapse (principal)
CPT/HCPCS: 36415; 80048

== ENCOUNTER → 2022-05-19 | Outpatient (CLI) | payer MEDICARE, SELFPAY ==
[2022-05-19 18:00] LABS: Absolute Lymphocyte Count 0.74 X10^3/uL (0.83-4.51); Absolute Neutrophil Count 3.9 X10^3/uL (2.0-7.7); Basophil# 0.02 X10^3/uL; Basophil% 0.3 % (0-1); Eosinophil# 0.65 X10^3/uL; Hematocrit 34.7 % (40-54); Hemoglobin 10.8 g/dL (13.0-16.5); Lymphocyte # 0.74 X10^3/ul (0.83-4.51); Lymphocyte % 12.5 % (19-41); Mean Corp Hgb Conc 31.1 g/dL (32-36); Mean Corpuscular Hgb 30.3 pg (27.0-32.0); Mean Corpuscular Volume 97.2 fL (80-94); Mean Platelet Vol. 10.8 fl (6.2-12.0); Monocyte# 0.53 X10^3/uL; NRBC Flagged by Analyzer 0 % (0-5); Neutrophil # 3.94 X10^3/uL (2.7-7.7); Neutrophil % 66.7 % (47-70); Platelet Count 150 K/mm3 (150-450); RBC Distribution Width CV 13.2 % (11.6-14.6); RBC Distribution Width SD 47.7 fl (35.1-43.9); Red Blood Count 3.57 M/mm3 (4.6-6.2); White Blood Count 5.9 K/mm3 (4.4-11.0)
[2022-05-19 18:59] LABS: ALB/GLOB Ratio 0.8 RATIO (0.9-2.4); AST(SGOT) 19 U/L (15-37); Alanine Aminotransfer ALT/SGPT 22 U/L (16-61); Albumin, Serum 3.5 g/dL (3.2-5.0); Alkaline Phosphatase 131 U/L (45-117); Anion Gap 7 (5-15); BUN 26 mg/dL (7-18); BUN/Creat Ratio 16.7 RATIO (10-20); Calcium,Total 8.8 mg/dL (8.5-10.1); Chloride 106 mmol/L (98-107); Creatinine, Serum 1.56 mg/dL (0.70-1.30); EST Glomerular Filtration Rate 46 mL/min (>60); Est Glom Filt Rate - Afr Amer 55 mL/min (>60); Globulin 4.3 g/dL (2.2-4.2); Glucose 94 mg/dL (74-106); Magnesium 2.3 mg/dL (1.6-2.6); Potassium 4.5 mmol/L (3.5-5.1); Protein, Total 7.8 g/dL (6.4-8.2); Sodium Level 140 mmol/L (136-145); Thyroid Stim Hormone (TSH) 3.26 uIU/mL (0.358-3.74)
== END | disposition home or self-care (01) ==
LOC: MFPLAB 14:42
PROVIDERS: PCP Family Medicine; Referring Provider Family Medicine; Visit Provider Family Medicine
DX: R42 Dizziness and giddiness (principal)
CPT/HCPCS: 36415; 80053; 83735; 84443; 85025

== ENCOUNTER 2022-07-11 15:45 | Emergency (ER) | payer MEDICARE, SELFPAY ==
[2022-07-11 15:46] VITALS: BP 154/72; PULSE 80; RESP 18; TEMP 36.4; O2SAT 99; BMI 20.7
--- NOTE | 2022-07-11 17:58 | RAD_ITS ---
STUDY: X-RAY - LEFT SCAPULA REASON FOR EXAM: Male, 82 years old. Trauma TECHNIQUE: 2 view(s) of the scapula were obtained. COMPARISON: None. FINDINGS: Normal scapula, including the osseous glenoid rim, acromion, scapular neck, spine, coracoid process, and visualized body. There is moderate degenerative arthrosis of the glenohumeral articulation. There is degenerative arthrosis of the acromioclavicular joint without inferior osseous spur formation. Normal visualized humeral head. Normal visualized pulmonary apex. There is no demonstrated scapular fracture. RAD/Scapula IMPRESSION: Glenohumeral and acromioclavicular arthrosis. No fracture seen. Electronically Signed: Jaime Lares MD at 18:37 EST ,
--- NOTE | 2022-07-11 17:58 | EDS_ITS ---
HPI History of Present Illness Chief Complaint: Fall Informant: patient Narrative Narrative: Patient presents after falling from a ladder at home. He was using a wood intermittent ladder to clean out the gutters and leaves. Second time he went up the ladder it broke. He fell. He thinks he actually rotated and hit the back of his left shoulder on one of the rungs of the ladder. He states he never actually fell to the ground. He finished working. He went in the house. He did some errands today. But it still sore mostly when he moves. Twisting hurts. He can move his left arm through full range of motion but it sore. He has no numbness tingling. He has no trouble breathing whatsoever. He is not on any blood thinners. He never hit his head. [facility] Medical History Chronic kidney insufficiency Former smoker Hyperlipidemia Influenza A Sleep apnea Type 2 diabetes mellitus Home Medications Lovastatin [Mevacor] 40 mg PO QHS CHOLESTEROL 08/08/17 [History Last Taken Unknown] Olopatadine Hcl [Patanol] 1 drp BID PRN Itching 08/08/17 [History Last Taken Unknown] aspirin 81 mg chewable tablet 81 mg PO QHS blood thinner 08/08/17 [History Last Taken Unknown] finasteride 5 mg tablet 5 mg PO QHS urine retention 08/08/17 [History Last Taken Unknown] fluticasone propionate 50 mcg/actuation nasal spray,suspension 2 spray QHS allergies 08/08/17 [History Last Taken Unknown] prednisone 10 mg tablet 10 mg PO BID PRN Pain 08/08/17 [History Last Taken Unknown] sertraline 100 mg tablet 100 mg PO QHS mental health 08/08/17 [History Last Taken Unknown] ciprofloxacin HCl 250 mg tablet 250 mg PO BID #14 tabs 08/09/17 [Rx Last Taken Unknown] tramadol 50 mg tablet 50 mg PO Q6H PRN PRN Pain #14 tabs 08/09/17 [Rx Last Taken Unknown] oseltamivir 30 mg capsule (Tamiflu) 30 mg PO BID 4 days #8 caps 07/28/21 [Rx Last Taken Unknown] Allergy/AdvReac Type Severity Reaction Status Date / Time No Known Allergies Allergy Verified 07/11/22 15:49 Social History Smoking Status: Former smoker ROS ROS ED Constitutional Constitutional ED: Denies fever(s) Eyes Eyes: Denies blurry vision or change in vision ENT ENT ED: Denies rhinorrhea or sore throat Cardiovascular Cardiovascular: Denies palpitations or racing heartbeat Respiratory/Chest Respiratory/Chest: Denies cough or dyspnea Gastrointestinal Gastrointestinal: Denies abdominal pain, nausea or vomiting Genitourinary Genitourinary ED: Denies dysuria or hematuria Musculoskeletal Musculoskeletal: Reports other Details: See history of present illness. Patient points really to the upper area of the scapula on the left as the main source of pain. Integumentary Denies Abrasions or rash Neurologic Neurologic: Denies headache(s), paresthesias or weakness Hematologic/Lymphatic Hematologic/Lymphatic: Denies easy bleeding or easy bruising Allergic/Immunologic Allergic/Immunologic ED: Denies urticaria EXAM Physical Exam Const Vital Signs: 07/11/22 15:46 07/11/22 17:12 Temperature 97.6 F L Temperature Source Temporal Pulse Rate 80 Respiratory Rate 18 Respiratory Effort Normal Non-Labored Respiratory Depth Normal Respiratory Pattern Normal Blood Pressure 154/72 H Blood Pressure Mean 99 Pulse Ox 99 Oxygen Delivery Method Room Air Room Air Positive well nourished and well developed General Appearance ED: well developed and NAD HEENT atraumatic; Negative for tenderness Neck full ROM Neck Narrative: No cervical spine tenderness or pain with range of motion or complaints of pain. Chest Wall inspection of chest normal and palpation of chest normal Resp Resp Narrative: Lungs are clear. He does seem to have some pain toward the upper end of the left scapula. It is really hard to reproduce with palpation though. It is more reproduced with motion. It is hard to tell if this is actually muscular, scapular contusion, or potentially underlying ribs. There is no subcutaneous air. Cardio regular rhythm and no murmurs Rate: regular rate GI normal to inspection, nondistended, normoactive bowel sounds and non-tender Back/Spine normal to inspection Back/Spine Narrative: No cervical thoracic or spinal or paraspinal tenderness. His area of discomfort is clearly left of the spine. Extremity normal to inspection and full ROM Neuro oriented x3 Psych mental status grossly normal Skin no wounds Rashes: No rashes noted MDM MDM MDM Narrative Medical decision making narrative: X-ray shows no acute process. Ice rest [id number] meds should be appropriate. Patient is rechecked. There is no new or different symptoms. Radiography Diagnostic Testing: Clinical Impression(s) from Imaging Studies Scapula X-Ray 07/11/22 17:58 IMPRESSION: Glenohumeral and acromioclavicular arthrosis. No fracture seen. Electronically Signed: Jaime Lares MD at 18:37 EST , Ribs w/Chest X-Ray 07/11/22 18:12 IMPRESSION: RIBS: Demineralization. No fracture seen. CHEST: Degenerative changes, as described above. No demonstrated acute cardiopulmonary process. Electronically Signed: Jaime Lares MD at 18:43 EST , 2 view x-ray left shoulder and 5 view of left ribs and chest looked at by me and read by radiology shows no acute fracture. There are some chronic changes. Discharge Plan Triage Chief Complaint: Fall ED Provider: Mookie Marks Dx/Rx/DC Orders Clinical Impression: Fall from ladder, Contusion of left scapula Instructions: ED Back Contusion Prescriptions: No Action sertraline 100 MG tablet 100 mg PO QHS Label Comments: finasteride 5 MG tablet 5 mg PO QHS Label Comments: last taken one month ago per pt Lovastatin [Mevacor] 40 MG tablet 40 mg PO QHS Label Comments: prednisone 10 MG tablet 10 mg PO BID PRN (Reason: Pain) aspirin 81 MG tablet,chewable 81 mg PO QHS fluticasone propionate 1 SPRAY spray,suspension 2 spray NASAL QHS Olopatadine Hcl [Patanol] 1 DROP bottle 1 drp Each Eye BID PRN (Reason: Itching) ciprofloxacin HCl 250 MG tablet 250 mg PO BID Qty: 14 0RF tramadol 50 MG tablet 50 mg PO Q6H PRN PRN (Reason: Pain) Qty: 14 0RF Rx Instructions: . oseltamivir [Tamiflu] 30 mg capsule 30 mg PO BID 4 Days Qty: 8 0RF Primary Care Provider: Zeferino Bryson Referrals: Zeferino Bryson MD [Primary Care Provider] - 1 Week if not improving Disposition Disposition: Home, Self Care
--- NOTE | 2022-07-11 18:12 | RAD_ITS ---
STUDY: X-RAY - UNILATERAL RIBS ( LEFT ) WITH CHEST REASON FOR EXAM: Male, 82 years old. Trauma TECHNIQUE - RIBS: 4 view(s) of the ribs. TECHNIQUE - CHEST: Single frontal view of the chest. COMPARISON: Chest x-ray July 26, 2021 FINDINGS - RIBS: There is demineralization of the osseous structures which diminishes the diagnostic sensitivity of this examination, however there is no visualized rib fracture. FINDINGS - CHEST: There are interstitial fibrotic changes of the lungs. There is no demonstrated pleural abnormality. Normal size heart. Normal mediastinum and ayaz. Normal visualized pulmonary arteries. There is atherosclerotic calcification of the aortic arch with tortuosity. There is demineralization of the osseous structures. There is degenerative osteoarthritis of the bilateral shoulders. There is no demonstrated abnormality of the visualized soft tissue structures of the upper abdomen. RAD/Ribs Uni Min 3V w/PA Chest IMPRESSION: RIBS: Demineralization. No fracture seen. CHEST: Degenerative changes, as described above. No demonstrated acute cardiopulmonary process. Electronically Signed: Jaime Lares MD at 18:43 EST ,
--- NOTE | 2022-07-11 18:19 | ED.RN ---
SON JAMAAL MICHAEL CALLED IN FOR STATUS OF PATIENT. SON WOULD LIKE CALLED WITH AN UPDATE AT [phone]
[2022-07-11 19:00] VITALS: RESP 18
--- NOTE | 2022-07-11 19:59 | ED.RN ---
PTS SON CALLED WITH UPDATE ON PT DISCHARGE. SON HAD NO FURTHER QUESTIONS AT THIS TIME.
[2022-07-11 20:01] VITALS: RESP 18
[2022-07-11] MEDS: Lidocaine 5% Patch 1 PATCH TOPICAL (20:14)
== END 2022-07-11 20:15 | disposition home or self-care (01) ==
PROVIDERS: Emergency Provider Emergency Medicine; PCP Family Medicine; Visit Provider Emergency Medicine
DX: S40.012A Contusion of left shoulder, initial encounter (principal); E11.22 Type 2 diabetes mellitus with diabetic chronic kidney disease; N18.9 Chronic kidney disease, unspecified; E78.5 Hyperlipidemia, unspecified; Z87.891 Personal history of nicotine dependence; W11.XXXA Fall on and from ladder, initial encounter
CPT/HCPCS: 71101; 73010; 99283

== ENCOUNTER → 2022-11-10 | Outpatient (CLI) | payer MEDICARE, SELFPAY ==
[2022-11-10 18:02] LABS: Absolute Lymphocyte Count 0.99 X10^3/uL (0.83-4.51); Absolute Neutrophil Count 3.1 X10^3/uL (2.0-7.7); Basophil# 0.03 X10^3/uL; Basophil% 0.5 % (0-1); Eosinophil# 0.93 X10^3/uL; Eosinophils% 16.3 % (0-5); Hematocrit 33.8 % (40-54); Lymphocyte # 0.99 X10^3/ul (0.83-4.51); Lymphocyte % 17.3 % (19-41); Mean Corp Hgb Conc 32.5 g/dL (32-36); Mean Corpuscular Hgb 30.9 pg (27.0-32.0); Mean Corpuscular Volume 94.9 fL (80-94); Mean Platelet Vol. 10.5 fl (6.2-12.0); Monocyte# 0.59 X10^3/uL; Monocyte% 10.3 % (0-10); NRBC Flagged by Analyzer 0 % (0-5); Neutrophil # 3.14 X10^3/uL (2.7-7.7); Neutrophil % 54.9 % (47-70); Platelet Count 169 K/mm3 (150-450); RBC Distribution Width CV 13.3 % (11.6-14.6); RBC Distribution Width SD 46.4 fl (35.1-43.9); Red Blood Count 3.56 M/mm3 (4.6-6.2); White Blood Count 5.7 K/mm3 (4.4-11.0)
[2022-11-10 18:34] LABS: ALB/GLOB Ratio 0.9 RATIO (0.9-2.4); AST(SGOT) 19 U/L (15-37); Alanine Aminotransfer ALT/SGPT 24 U/L (16-61); Albumin, Serum 3.6 g/dL (3.2-5.0); Alkaline Phosphatase 102 U/L (45-117); Anion Gap 6 (5-15); BUN 30 mg/dL (7-18); BUN/Creat Ratio 20.5 RATIO (10-20); Calcium,Total 8.7 mg/dL (8.5-10.1); Chloride 108 mmol/L (98-107); Creatinine, Serum 1.46 mg/dL (0.70-1.30); EST Glomerular Filtration Rate 49 mL/min (>60); Est Glom Filt Rate - Afr Amer 60 mL/min (>60); Globulin 4.2 g/dL (2.2-4.2); Glucose 150 mg/dL (74-106); Potassium 4.3 mmol/L (3.5-5.1); Protein, Total 7.8 g/dL (6.4-8.2); Sodium Level 142 mmol/L (136-145)
== END | disposition home or self-care (01) ==
LOC: MTLAB 16:24
PROVIDERS: PCP Family Medicine; Referring Provider Family Medicine; Visit Provider Family Medicine
DX: R53.83 Other fatigue (principal)
CPT/HCPCS: 36415; 80053; 85025

== ENCOUNTER → 2023-03-01 | Outpatient (CLI) | payer MEDICARE, SELFPAY ==
[2023-03-01 17:54] LABS: Absolute Lymphocyte Count 0.96 X10^3/uL (0.83-4.51); Basophil# 0.04 X10^3/uL; Basophil% 0.6 % (0-1); Eosinophil# 0.77 X10^3/uL; Hematocrit 36.6 % (40-54); Hemoglobin 11.9 g/dL (13.0-16.5); Lymphocyte # 0.96 X10^3/ul (0.83-4.51); Lymphocyte % 14.9 % (19-41); Mean Corp Hgb Conc 32.5 g/dL (32-36); Mean Corpuscular Hgb 30.4 pg (27.0-32.0); Mean Corpuscular Volume 93.6 fL (80-94); Mean Platelet Vol. 10.7 fl (6.2-12.0); Monocyte# 0.67 X10^3/uL; Monocyte% 10.4 % (0-10); NRBC Flagged by Analyzer 0 % (0-5); Neutrophil # 3.96 X10^3/uL (2.7-7.7); Neutrophil % 61.5 % (47-70); Platelet Count 216 K/mm3 (150-450); RBC Distribution Width CV 12.4 % (11.6-14.6); RBC Distribution Width SD 42.2 fl (35.1-43.9); Red Blood Count 3.91 M/mm3 (4.6-6.2); White Blood Count 6.4 K/mm3 (4.4-11.0)
[2023-03-01 18:17] LABS: ALB/GLOB Ratio 0.9 RATIO (0.9-2.4); AST(SGOT) 13 U/L (15-37); Alanine Aminotransfer ALT/SGPT 16 U/L (16-61); Albumin, Serum 3.7 g/dL (3.2-5.0); Alkaline Phosphatase 93 U/L (45-117); Anion Gap 6 (5-15); BUN 26 mg/dL (7-18); BUN/Creat Ratio 12.1 RATIO (10-20); Calcium,Total 8.8 mg/dL (8.5-10.1); Chloride 107 mmol/L (98-107); Creatinine, Serum 2.14 mg/dL (0.70-1.30); EST Glomerular Filtration Rate 32 mL/min (>60); Est Glom Filt Rate - Afr Amer 38 mL/min (>60); Globulin 4.1 g/dL (2.2-4.2); Glucose 104 mg/dL (74-106); Potassium 4.3 mmol/L (3.5-5.1); Protein, Total 7.8 g/dL (6.4-8.2); Sodium Level 138 mmol/L (136-145); Thyroid Stim Hormone (TSH) 1.23 uIU/mL (0.358-3.74)
== END | disposition home or self-care (01) ==
LOC: MFPLAB 16:30
PROVIDERS: PCP Family Medicine; Visit Provider Family Medicine
DX: R53.83 Other fatigue (principal)
CPT/HCPCS: 36415; 80053; 84443; 85025

== ENCOUNTER 2023-03-06 19:41 | Emergency (ER) | payer MEDICARE, SELFPAY ==
[2023-03-06 19:42] VITALS: BP 112/62; PULSE 93; RESP 16; TEMP 37.1; O2SAT 96; BMI 21.1
[2023-03-06 21:25] LABS: Bacteria 0 SEEN /hpf (None Seen); Mucous, Urine 0 SEEN /hpf (<or=2+); Red Blood Cells-Urine 0 SEEN /hpf (0-5); Squamous Epithelial Cells - UA 0 SEEN /hpf (0-5)
[2023-03-06 21:27] LABS: Color, Urine Yellow (Yellow); Glucose, Dipstick Normal (Normal); Ketone-Dipstick Negative (Negative); Leukocyte Esterase-Dipstick 25 /ul (Negative); Nitrite-Dipstick Negative (Negative); Occult Blood-Urine 10 /ul (Negative); Protein-Dipstick 15 mg/dl (Negative); Specific Gravity, Urine 1.015 (1.002-1.030); Urine Bilirubin Dipstick Negative (Negative); Urine Clarity Clear (Clear); Urine Urobilinogen Normal (Normal)
[2023-03-06] MEDS: 0.9% Normal Saline 1,000 ML 1000 ML IV (21:37)
[2023-03-06 21:39] LABS: Absolute Lymphocyte Count 0.94 X10^3/uL (0.83-4.51); Absolute Neutrophil Count 3.4 X10^3/uL (2.0-7.7); Basophil# 0.04 X10^3/uL; Basophil% 0.7 % (0-1); Eosinophil# 0.89 X10^3/uL; Eosinophils% 15.1 % (0-5); Hematocrit 37.2 % (40-54); Hemoglobin 12.2 g/dL (13.0-16.5); Lymphocyte # 0.94 X10^3/ul (0.83-4.51); Mean Corp Hgb Conc 32.8 g/dL (32-36); Mean Corpuscular Hgb 30.4 pg (27.0-32.0); Mean Corpuscular Volume 92.8 fL (80-94); Mean Platelet Vol. 9.8 fl (6.2-12.0); Monocyte# 0.61 X10^3/uL; Monocyte% 10.4 % (0-10); NRBC Flagged by Analyzer 0 % (0-5); Neutrophil # 3.38 X10^3/uL (2.7-7.7); Neutrophil % 57.5 % (47-70); Platelet Count 174 K/mm3 (150-450); RBC Distribution Width CV 12.4 % (11.6-14.6); RBC Distribution Width SD 42.7 fl (35.1-43.9); Red Blood Count 4.01 M/mm3 (4.6-6.2); White Blood Count 5.9 K/mm3 (4.4-11.0)
--- NOTE | 2023-03-06 21:40 | EX.ED.DYSGE1 ---
HPI History of Present Illness Chief Complaint: Fatigue Narrative Narrative: 83-year-old male presenting with fatigue. He states he is tired all the time. Patient states to be rested for a while and wakes up he feels good. Right now he feels okay. The patient is a very poor informant with a history of dementia. I spoke with his daughter Qing Lassiter who told me that he has not been eating and drinking very well. She is concerned he might be dehydrated. Apparently she is also his neuropsychology division chief. She does state that he saw Dr. Bryson a week ago and was evaluated. Apparently he also sees Dr. Bryson as well. She reports that he was taking Zoloft for decades and stopped 3 months ago and started this again at 100 mg daily and she thinks that this might be part of the problem. She also thought that the patient was having GI issues but is not eating and drinking well. [facility] Medical History Chronic kidney insufficiency Former smoker Hyperlipidemia Influenza A Sleep apnea Type 2 diabetes mellitus Home Medications Lovastatin [Mevacor] 40 mg PO QHS CHOLESTEROL 08/08/17 [History Last Taken Unknown] Olopatadine Hcl [Patanol] 1 drp BID PRN Itching 08/08/17 [History Last Taken Unknown] aspirin 81 mg chewable tablet 81 mg PO QHS blood thinner 08/08/17 [History Last Taken Unknown] finasteride 5 mg tablet 5 mg PO QHS urine retention 08/08/17 [History Last Taken Unknown] fluticasone propionate 50 mcg/actuation nasal spray,suspension 2 spray QHS allergies 08/08/17 [History Last Taken Unknown] prednisone 10 mg tablet 10 mg PO BID PRN Pain 08/08/17 [History Last Taken Unknown] sertraline 100 mg tablet 100 mg PO QHS mental health 08/08/17 [History Last Taken Unknown] ciprofloxacin HCl 250 mg tablet 250 mg PO BID #14 tabs 08/09/17 [Rx Last Taken Unknown] tramadol 50 mg tablet 50 mg PO Q6H PRN PRN Pain #14 tabs 08/09/17 [Rx Last Taken Unknown] oseltamivir 30 mg capsule (Tamiflu) 30 mg PO BID 4 days #8 caps 07/28/21 [Rx Last Taken Unknown] lidocaine 5 % topical patch (Lidoderm) 1 patch topical DAILY #15 ea 07/11/22 [Rx Last Taken Unknown] lorazepam 0.5 mg tablet (Ativan) 0.5 mg PO DAILY 03/06/23 [History Last Taken Unknown] oxybutynin chloride 5 mg tablet mg 03/06/23 [History Last Taken Unknown] Allergy/AdvReac Type Severity Reaction Status Date / Time No Known Allergies Allergy Verified 03/06/23 19:42 Social History Smoking Status: Former smoker ROS ROS ED Constitutional Constitutional ED: Denies chills or fever(s) Eyes Eyes: Denies change in vision or diplopia ENT ENT ED: Denies rhinorrhea or sore throat Cardiovascular Cardiovascular: Denies chest pain or palpitations Respiratory/Chest Respiratory/Chest: Denies cough or dyspnea Gastrointestinal Gastrointestinal: Reports other Details: Decreased p.o. intake ; Denies constipation or diarrhea Genitourinary Genitourinary ED: Reports urinary frequency; Denies dysuria or hematuria Musculoskeletal Musculoskeletal: Denies arthralgias or back pain Integumentary Denies abscess Neurologic Neurologic: Denies headache(s) EXAM Physical Exam Const Vital Signs: 03/06/23 19:42 03/06/23 23:18 Temperature 98.7 F Temperature Source Temporal Pulse Rate 93 71 Respiratory Rate 16 14 Blood Pressure 112/62 115/73 Blood Pressure Mean 78 87 Pulse Ox 96 98 Oxygen Delivery Method Room Air Positive well nourished General Appearance ED: NAD; Negative for pallor HEENT Reports moist mucous membranes Eyes PERRL and EOMs intact bilaterally General Eye ED: Negative for pale conjunctiva or scleral icterus Chest Wall inspection of chest normal Resp normal respiratory effort and clear to auscultation bilaterally Auscultation: Negative for rales, rhonchi or wheezes Cardio regular rate and regular rhythm GI normal to inspection, nondistended, normoactive bowel sounds Neuro CN's II-XII intact bilaterally Sensorium / Orientation: alert Motor Exam: strength 5/5 throughout Psych mental status grossly normal Skin no rashes or lesions noted and no wounds General Skin Exam: Negative for jaundice or pallor MDM MDM MDM Narrative Medical decision making narrative: Presenting with generalized fatigue. I did speak to his daughter who thought this might be medication related as he just was started back on Zoloft again recently. He also has a history of sleep apnea. His physical exam is unremarkable. Vital signs are stable he is afebrile. I did obtain a CBC to assess white blood cell count, hemoglobin. CMP to assess liver function, electrolytes, renal function. Urinalysis to assess for UTI. CT of the abdomen pelvis was also obtained. CBC shows no significant leukocytosis. Hemoglobin stable at 12.2. Platelets 174. Creatinine near baseline at 1.94. Electrolytes unremarkable. LFTs are normal. Urinalysis negative for infection. 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 I did try to call his daughter back however she was unable to answer the phone. I feel the patient stable for discharge at this time. Impression: 1. Fatigue 2. Abdominal pain 3. constipation 4. 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 Lab Data Labs: Laboratory Results - last 24 hr 03/06/23 03/06/23 21:20 21:21 WBC 5.9 RBC 4.01 L Hgb 12.2 L Hct 37.2 L MCV 92.8 MCH 30.4 MCHC 32.8 RDW Std Deviation 42.7 RDW Coeff of Ulises 12.4 Plt Count 174 MPV 9.8 Immature Gran % (Auto) 0.300 Neut % (Auto) 57.5 Lymph % (Auto) 16.0 L [place] % (Auto) 10.4 H Eos % (Auto) 15.1 H Baso % (Auto) 0.7 Absolute Neuts (auto) 3.4 Absolute Lymphs (auto) 0.94 Nucleated RBC % 0 Sodium 136 Potassium 4.5 Chloride 103 Carbon Dioxide 30.0 Anion Gap 3 L BUN 20 H Creatinine 1.94 H Estim Creat Clear Calc 27.40 Est GFR (MDRD) Af Amer 43 L Est GFR (MDRD) Non-Af 36 L BUN/Creatinine Ratio 10.3 Glucose 129 H Calcium 9.0 Total Bilirubin 0.30 AST 16 ALT 15 L Alkaline Phosphatase 116 Total Protein 8.2 Albumin 3.8 Globulin 4.4 H Albumin/Globulin Ratio 0.9 Lipase 50 Urine Color Yellow Urine Clarity Clear Urine pH 6.0 Ur Specific [place] 1.015 Urine Protein 15 H Urine Glucose (UA) Normal Urine Ketones Negative Urine Occult Blood 10 H Urine Nitrite Negative Urine Bilirubin Negative Urine Urobilinogen Normal Ur Leukocyte Esterase 25 H Urine RBC 0 SEEN Urine WBC 0-5 SEEN Ur Squamous Epith Cells 0 SEEN Urine Bacteria 0 SEEN Urine Mucus 0 SEEN Radiography Diagnostic Testing: Clinical Impression(s) from Imaging Studies Abdomen/Pelvis CT 03/06/23 22:15 IMPRESSION: 1. Suspect constipation. 2. 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 Electronically Signed: Manuel Bui MD at 23:09 EDT , Discharge Plan Triage Chief Complaint: Fatigue ED Provider: Elliott Cha Dx/Rx/DC Orders Prescriptions: No Action sertraline 100 MG tablet 100 mg PO QHS Patient Comments: finasteride 5 MG tablet 5 mg PO QHS Patient Comments: last taken one month ago per pt Lovastatin [Mevacor] 40 MG tablet 40 mg PO QHS Patient Comments: prednisone 10 MG tablet 10 mg PO BID PRN (Reason: Pain) aspirin 81 MG tablet,chewable 81 mg PO QHS fluticasone propionate 1 SPRAY spray,suspension 2 spray NASAL QHS Olopatadine Hcl [Patanol] 1 DROP bottle 1 drp Each Eye BID PRN (Reason: Itching) ciprofloxacin HCl 250 MG tablet 250 mg PO BID Qty: 14 0RF tramadol 50 MG tablet 50 mg PO Q6H PRN PRN (Reason: Pain) Qty: 14 0RF Rx Instructions: . oseltamivir [Tamiflu] 30 mg capsule 30 mg PO BID 4 Days Qty: 8 0RF lidocaine [Lidoderm] 5 % adhesive patch,medicated 1 patch topical DAILY Qty: 15 0RF Rx Instructions: leave on most painful area for up to 12 hrs oxybutynin chloride 5 mg tablet lorazepam [Ativan] 0.5 mg tablet 0.5 mg PO DAILY Primary Care Provider: Zeferino Bryson Referrals: Zeferino Bryson MD [Primary Care Provider] -
[2023-03-06 21:54] LABS: White Blood Cells 0-5 SEEN /hpf (0-5)
[2023-03-06 22:07] LABS: ALB/GLOB Ratio 0.9 RATIO (0.9-2.4); AST(SGOT) 16 U/L (15-37); Alanine Aminotransfer ALT/SGPT 15 U/L (16-61); Albumin, Serum 3.8 g/dL (3.2-5.0); Alkaline Phosphatase 116 U/L (45-117); Anion Gap 3 (5-15); BUN 20 mg/dL (7-18); BUN/Creat Ratio 10.3 RATIO (10-20); Chloride 103 mmol/L (98-107); Creatinine, Serum 1.94 mg/dL (0.70-1.30); EST Glomerular Filtration Rate 36 mL/min (>60); Est Glom Filt Rate - Afr Amer 43 mL/min (>60); Globulin 4.4 g/dL (2.2-4.2); Glucose 129 mg/dL (74-106); Lipase 50 U/L (13-75); Potassium 4.5 mmol/L (3.5-5.1); Protein, Total 8.2 g/dL (6.4-8.2); Sodium Level 136 mmol/L (136-145)
--- NOTE | 2023-03-06 22:15 | CT_ITS ---
STUDY: CT ABDOMEN AND PELVIS WITH CONTRAST REASON FOR EXAM: Male, 83 years old. pain RADIATION DOSAGE (If Supplied By Facility): CTDIvol = ( 13.18 ) mGy, DLP = ( 753.67 ) mGycm TECHNIQUE: Transaxial images were obtained from the dome of the diaphragm to the symphysis pubis without oral contrast. IV 100mL Isovue-370 was administered. Sagittal and coronal images were reconstructed. Individualized dose optimization techniques were used for this CT. COMPARISON: None. FINDINGS: The visualized lung bases are unremarkable. The visualized portions of the heart are within normal limits. Normal liver. Normal gallbladder and extrahepatic biliary system. Normal spleen. Normal pancreas. Normal bilateral adrenal glands. Normal right kidney. 1.5 cm cyst in the lower pole of the left kidney. Normal visualized stomach. Normal small intestine. Large amount of stool throughout the colon suggestive of constipation. The appendix is visualized and appears normal. There is diffuse atherosclerotic calcification of the abdominal aorta, without a demonstrated aneurysm. 2 cm aneurysm of the right common iliac artery with peripheral calcification and mural thrombus. Normal inferior vena cava. Normal retroperitoneum. Normal urinary bladder. Normal abdominal wall. There are diffuse degenerative changes of the visualized lumbar spine. CT/Abdomen/Pelvis W IV Cont ONLY IMPRESSION: 1. Suspect constipation. 2. 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 Electronically Signed: Manuel Bui MD at 23:09 EDT ,
[2023-03-06 23:18] VITALS: BP 115/73; PULSE 71; RESP 14; O2SAT 98
== END 2023-03-07 01:07 | disposition home or self-care (01) ==
PROVIDERS: Emergency Provider Student in an Organized Health Care Education/Training Program; PCP Family Medicine; Visit Provider Student in an Organized Health Care Education/Training Program
DX: R53.83 Other fatigue (principal); E11.22 Type 2 diabetes mellitus with diabetic chronic kidney disease; I72.3 Aneurysm of iliac artery; E78.5 Hyperlipidemia, unspecified; Z87.891 Personal history of nicotine dependence; N18.9 Chronic kidney disease, unspecified; K59.00 Constipation, unspecified; Z79.899 Other long term (current) drug therapy; Z79.82 Long term (current) use of aspirin; R10.9 Unspecified abdominal pain
CPT/HCPCS: 74177; 80053; 81001; 83690; 85025; 96360; 99285; J7030; Q9967; A4216

== ENCOUNTER → 2023-03-07 | Outpatient (CLI) | payer MEDICARE, SELFPAY ==
[2023-03-07 12:28] LABS: Albumin, Serum 3.5 g/dL (3.2-5.0); BUN 18 mg/dL (7-18); BUN/Creat Ratio 9.7 RATIO (10-20); Calcium,Total 8.8 mg/dL (8.5-10.1); Chloride 106 mmol/L (98-107); Creatinine, Serum 1.85 mg/dL (0.70-1.30); EST Glomerular Filtration Rate 38 mL/min (>60); Est Glom Filt Rate - Afr Amer 45 mL/min (>60); Glucose 110 mg/dL (74-106); Phosphorus 3.5 mg/dL (2.5-4.9); Potassium 4.1 mmol/L (3.5-5.1); Sodium Level 137 mmol/L (136-145)
[2023-03-07 17:22] LABS: Microalbumin,Random Urine 29.7 mg/L (NO RANGE EST.); Microalbumin:Creatinine Ratio 13.1 mg/g CRE (<30 mg/g CRE)
== END | disposition home or self-care (01) ==
LOC: POLAB3 10:52
PROVIDERS: PCP Family Medicine; Visit Provider Family Medicine Geriatric Medicine
DX: N17.9 Acute kidney failure, unspecified (principal); N18.32 Chronic kidney disease, stage 3b
CPT/HCPCS: 36415; 80069; 82043; 82570

== ENCOUNTER → 2023-04-10 | Outpatient (CLI) | payer MEDICARE, SELFPAY ==
[2023-04-10 12:13] LABS: Absolute Neutrophil Count 3.7 X10^3/uL (2.0-7.7); Basophil# 0.03 X10^3/uL; Basophil% 0.5 % (0-1); Eosinophils% 8.9 % (0-5); Hemoglobin 11.3 g/dL (13.0-16.5); Lymphocyte % 14.3 % (19-41); Mean Corp Hgb Conc 32.3 g/dL (32-36); Mean Corpuscular Hgb 30.9 pg (27.0-32.0); Mean Corpuscular Volume 95.6 fL (80-94); Monocyte# 0.58 X10^3/uL; Monocyte% 10.3 % (0-10); NRBC Flagged by Analyzer 0 % (0-5); Neutrophil # 3.68 X10^3/uL (2.7-7.7); Neutrophil % 65.6 % (47-70); Platelet Count 138 K/mm3 (150-450); RBC Distribution Width CV 13.2 % (11.6-14.6); RBC Distribution Width SD 46.4 fl (35.1-43.9); Red Blood Count 3.66 M/mm3 (4.6-6.2); White Blood Count 5.6 K/mm3 (4.4-11.0)
[2023-04-10 13:01] LABS: Anion Gap 5 (5-15); BUN 20 mg/dL (7-18); BUN/Creat Ratio 11.6 RATIO (10-20); Calcium,Total 8.5 mg/dL (8.5-10.1); Chloride 107 mmol/L (98-107); Creatinine, Serum 1.72 mg/dL (0.70-1.30); EST Glomerular Filtration Rate 41 mL/min (>60); Est Glom Filt Rate - Afr Amer 49 mL/min (>60); Glucose 109 mg/dL (74-106); Sodium Level 140 mmol/L (136-145); Thyroid Stim Hormone (TSH) 2.09 uIU/mL (0.358-3.74)
== END | disposition home or self-care (01) ==
LOC: MFPLAB 10:20 → MTLAB 15:54 → MFPLAB 15:58
PROVIDERS: PCP Family Medicine; Referring Provider Family Medicine; Visit Provider Family Medicine
DX: R53.83 Other fatigue (principal)
CPT/HCPCS: 36415; 80048; 84443; 85025

== ENCOUNTER → 2023-05-03 | Outpatient (CLI) | payer MEDICARE, SELFPAY ==
[2023-05-03 11:58] LABS: Albumin, Serum 3.3 g/dL (3.2-5.0); BUN 22 mg/dL (7-18); BUN/Creat Ratio 12.5 RATIO (10-20); Calcium,Total 8.4 mg/dL (8.5-10.1); Chloride 110 mmol/L (98-107); Creatinine, Serum 1.76 mg/dL (0.70-1.30); EST Glomerular Filtration Rate 40 mL/min (>60); Est Glom Filt Rate - Afr Amer 48 mL/min (>60); Glucose 145 mg/dL (74-106); Phosphorus 3.3 mg/dL (2.5-4.9); Potassium 4.2 mmol/L (3.5-5.1); Sodium Level 142 mmol/L (136-145)
[2023-05-03 12:09] LABS: Microalbumin,Random Urine 11.3 mg/L (NO RANGE EST.)
== END | disposition home or self-care (01) ==
LOC: POLAB3 10:23
PROVIDERS: PCP Family Medicine; Visit Provider Internal Medicine Nephrology
DX: N17.9 Acute kidney failure, unspecified (principal)
CPT/HCPCS: 36415; 80069; 82043; 82570

== ENCOUNTER 2023-06-14 10:56 | Outpatient (CLI) | payer MEDICARE, SELFPAY ==
[2023-06-14 12:52] LABS: Erythrocyte Sedimentation Rate 30 mm/hr (0-20)
[2023-06-14 12:57] LABS: Absolute Lymphocyte Count 0.68 X10^3/uL (0.83-4.51); Absolute Neutrophil Count 3.2 X10^3/uL (2.0-7.7); Basophil# 0.02 X10^3/uL; Basophil% 0.4 % (0-1); Eosinophils% 10.2 % (0-5); Hematocrit 36.7 % (40-54); Hemoglobin 11.7 g/dL (13.0-16.5); Lymphocyte # 0.68 X10^3/ul (0.83-4.51); Lymphocyte % 13.9 % (19-41); Mean Corp Hgb Conc 31.9 g/dL (32-36); Mean Corpuscular Hgb 30.2 pg (27.0-32.0); Mean Corpuscular Volume 94.6 fL (80-94); Mean Platelet Vol. 10.3 fl (6.2-12.0); Monocyte# 0.43 X10^3/uL; Monocyte% 8.8 % (0-10); NRBC Flagged by Analyzer 0 % (0-5); Neutrophil # 3.23 X10^3/uL (2.7-7.7); Neutrophil % 66.1 % (47-70); Platelet Count 178 K/mm3 (150-450); RBC Distribution Width CV 13.2 % (11.6-14.6); Red Blood Count 3.88 M/mm3 (4.6-6.2); White Blood Count 4.9 K/mm3 (4.4-11.0)
[2023-06-14 13:29] LABS: ALB/GLOB Ratio 0.7 RATIO (0.9-2.4); AST(SGOT) 14 U/L (15-37); Alanine Aminotransfer ALT/SGPT 21 U/L (16-61); Albumin, Serum 3.4 g/dL (3.2-5.0); Alkaline Phosphatase 115 U/L (45-117); Anion Gap 6 (5-15); BUN 24 mg/dL (7-18); BUN/Creat Ratio 12.9 RATIO (10-20); Chloride 106 mmol/L (98-107); Creatinine, Serum 1.86 mg/dL (0.70-1.30); EST Glomerular Filtration Rate 37 mL/min (>60); Est Glom Filt Rate - Afr Amer 45 mL/min (>60); Globulin 4.6 g/dL (2.2-4.2); Glucose 180 mg/dL (74-106); PSA,Total - Annual Screen 4.93 ng/mL (0.00-4.00); Potassium 4.6 mmol/L (3.5-5.1); Sodium Level 138 mmol/L (136-145)
[2023-06-14 18:09] LABS: Hemoglobin A1c 6.5 % (3.8-5.6)
== END 2023-06-14 23:59 | disposition home or self-care (01) ==
LOC: MTLAB 10:56
PROVIDERS: PCP Family Medicine; Referring Provider Family Medicine; Visit Provider Family Medicine
DX: R53.81 Other malaise (principal); E11.9 Type 2 diabetes mellitus without complications; Z12.5 Encounter for screening for malignant neoplasm of prostate
CPT/HCPCS: 36415; 80053; 83036; 84153; 85025; 85652; G0103

== ENCOUNTER → 2023-11-03 | Outpatient (CLI) | payer MEDICARE, SELFPAY ==
[2023-11-03 18:14] LABS: Anion Gap 5 (5-15); BUN 22 mg/dL (7-18); BUN/Creat Ratio 12.9 RATIO (10-20); Calcium,Total 9.1 mg/dL (8.5-10.1); Chloride 104 mmol/L (98-107); Creatinine, Serum 1.71 mg/dL (0.70-1.30); EST Glomerular Filtration Rate 41 mL/min (>60); Est Glom Filt Rate - Afr Amer 50 mL/min (>60); Glucose 103 mg/dL (74-106); Potassium 4.7 mmol/L (3.5-5.1); Sodium Level 138 mmol/L (136-145); Uric Acid 6.6 mg/dL (3.5-7.2)
[2023-11-03 18:17] LABS: Hemoglobin A1c 6.3 % (3.8-5.6)
== END | disposition home or self-care (01) ==
LOC: MFPLAB 15:50
PROVIDERS: PCP Family Medicine; Visit Provider Family Medicine
DX: Z00.00 Encounter for general adult medical examination without abnormal findings (principal); M10.9 Gout, unspecified; E16.2 Hypoglycemia, unspecified
CPT/HCPCS: 36415; 80048; 83036; 84550

== ENCOUNTER 2024-01-22 14:21 | Emergency (ER) | payer MEDICARE, SELFPAY ==
[2024-01-22] VITALS (17 sets, daily range): BP systolic 122–160; BP diastolic 60–78; PULSE 55–65; RESP 12–20; TEMP 36.4–36.8; O2SAT 95–100; BMI 21.3
--- NOTE | 2024-01-22 14:30 | EKG12_ITS ---
Test Reason : CP Blood Pressure : / mmHG Vent. Rate : 064 BPM Atrial Rate : 064 BPM P-R Int : 164 ms QRS Dur : 102 ms QT Int : 410 ms P-R-T Axes : 071 069 075 degrees QTc Int : 422 ms Normal sinus rhythm Normal ECG Confirmed by DELGADO NGUYỄN, KACIE ([id number]), news video editor [place] ([id number]) on 01/25/2024 6:17:44 AM Referred By: GONZALEZ Confirmed By:ANDREINA NATARAJAN MD
--- NOTE | 2024-01-22 14:30 | RAD_ITS ---
STUDY: X-RAY CHEST REASON FOR EXAM: Male, 83 years old. chest pain TECHNIQUE: Single AP portable view of the chest. COMPARISON: 07/11/2022. FINDINGS: The lungs are clear and expanded. Mild fibrotic changes of the lung bases, stable. There is no demonstrated pleural abnormality. Normal size heart. Normal mediastinum and ayaz. Normal visualized pulmonary arteries. Normal visualized aortic arch and descending thoracic aorta. There are diffuse degenerative changes of the visualized thoracic spine. There is degenerative osteoarthritis of the bilateral shoulders. There is no demonstrated abnormality of the visualized soft tissue structures of the upper abdomen. RAD/Chest 1 View (Portable) IMPRESSION: No definite acute or significant abnormality seen. Electronically Signed: Hunter Fajardo MD at 19:17 EDT ,
[2024-01-22 14:57] LABS: Absolute Lymphocyte Count 0.69 X10^3/uL (0.83-4.51); Absolute Neutrophil Count 4.5 X10^3/uL (2.0-7.7); Basophil# 0.03 X10^3/uL; Basophil% 0.5 % (0-1); Eosinophil# 0.58 X10^3/uL; Eosinophils% 8.9 % (0-5); Hematocrit 34.3 % (40-54); Hemoglobin 10.8 g/dL (13.0-16.5); Lymphocyte # 0.69 X10^3/ul (0.83-4.51); Lymphocyte % 10.6 % (19-41); Mean Corp Hgb Conc 31.5 g/dL (32-36); Mean Corpuscular Hgb 29.8 pg (27.0-32.0); Mean Corpuscular Volume 94.8 fL (80-94); Mean Platelet Vol. 10.4 fl (6.2-12.0); Monocyte# 0.72 X10^3/uL; NRBC Flagged by Analyzer 0 % (0-5); Neutrophil # 4.46 X10^3/uL (2.7-7.7); Neutrophil % 68.4 % (47-70); Platelet Count 137 K/mm3 (150-450); RBC Distribution Width CV 13.2 % (11.6-14.6); RBC Distribution Width SD 45.4 fl (35.1-43.9); Red Blood Count 3.62 M/mm3 (4.6-6.2); White Blood Count 6.5 K/mm3 (4.4-11.0)
--- NOTE | 2024-01-22 14:59 | ED.VIS.CHEST ---
HPI History of Present Illness Chief Complaint: Chest Pain Narrative Narrative: History and physical limited mildly to patient's age. Obtained through caregiver. 83 year old male presents with reports of chest pain, sharp, causing him to wince in pain. His caregiver came in at 1:30 pm, 1.5 hours ago, and he complained to her that he was having chest pain. It caused him to flinch and wince, and he told her he had taken a pain pill, which was actually Lorezepam 0.5 mg. No fever or chills, no cough, no nausea or vomiting, no diaphoresis. No exacerbating or alleviating symptoms. Caregiver thought it best to have him evaluated for his reported chest pain that is fleeting. [facility] Medical History Hypertension Influenza A Chronic kidney insufficiency Sleep apnea Former smoker Type 2 diabetes mellitus Hyperlipidemia Home Medications ?Medication ?Instructions ?Recorded ?Last Taken ?Type sertraline 100 mg tablet 100 mg PO [facility] mental health 08/08/17 Unknown History docusate sodium 100 mg capsule 100 mg PO DAILY 01/22/24 Unknown History (Colace) fexofenadine 180 mg tablet 180 mg PO DAILY 01/22/24 Unknown History (Lynette Allergy) omeprazole 20 mg capsule,delayed 20 mg PO DAILY 01/22/24 Unknown History release oxybutynin chloride 10 mg 10 mg PO DAILY 01/22/24 Unknown History tablet,extended release 24 hr Allergy/AdvReac Type Severity Reaction Status Date / Time No Known Allergies Allergy Verified 03/06/23 19:42 Social History Smoking Status: Former smoker ROS ROS ED ROS Narrative No fever or chills, no nausea, vomiting, or diaphoresis. Complained of sharp, fleeting pain in left chest, no other symptoms. EXAM Physical Exam Narrative Exam Narrative: Afebrile. Vital signs noted. No acute distress. Non toxic appearing. Regular rate and rhythm. Lungs clear to auscultation bilaterally. Abdomen soft and nontender with positive bowel sounds. Intermittently sleeping during exam. Easily awakened. Appropriate responses. Const Vital Signs: 01/22/24 14:22 01/22/24 14:32 01/22/24 14:33 Temperature 97.5 F L Temperature Source Temporal Pulse Rate 62 Respiratory Rate 19 H Respiratory Effort Normal Non-Labored Blood Pressure 138/65 H Blood Pressure Mean 89 Pulse Ox 99 Oxygen Delivery Method Room Air Room Air 01/22/24 14:44 01/22/24 14:45 01/22/24 15:00 Temperature Temperature Source Pulse Rate 62 62 64 Respiratory Rate 15 14 12 Respiratory Effort Blood Pressure 147/72 H 141/76 H Blood Pressure Mean 92 95 Pulse Ox 99 99 98 Oxygen Delivery Method 01/22/24 15:15 01/22/24 15:30 01/22/24 15:45 Temperature Temperature Source Pulse Rate 60 63 59 L Respiratory Rate 16 20 H 13 Respiratory Effort Blood Pressure 144/78 H 160/73 H 149/68 H Blood Pressure Mean 98 98 91 Pulse Ox 95 98 98 Oxygen Delivery Method Room Air Room Air Room Air 01/22/24 16:00 01/22/24 17:00 01/22/24 17:45 Temperature 98.2 F Temperature Source Pulse Rate 59 L 58 L 65 Respiratory Rate 16 16 12 Respiratory Effort Blood Pressure 139/68 H 157/72 H 122/70 H Blood Pressure Mean 89 100 87 Pulse Ox 96 98 100 Oxygen Delivery Method Room Air Room Air Heart Score History: Slightly/Non-Suspicious ECG: Normal Age: >/= 65 years Risk Factors: 1 or 2 Risk Factors Score: 3 MDM MDM MDM Narrative Medical decision making narrative: In the differential is ACS vs pneumothorax, versus pneumonia. History and physical is not supportive of pneumothorax or pneumonia. No cough, fever, or shortness of breath. EKG obtained and interpreted by myself independently as Christel sinus rhythm at 64 beat per minute without ectopy or acute changes. No STEMI. Chest x-ray in one view interpreted by myself independently shown no evidence of pneumothorax or condolidation. I do not feel antibiotics are indicated. I reviewed his laboratory work and he has a normal white count of 6.5, hemoflobin stable at 10.8, hematocrit 34.3. Platelet count 137. Electrolytes reviewed and in review of his previous labs, he has chronic kidney injury of creatinine 1.76, BUN of 22. Glucose elevated at 145 with normal anion gap of 5. Initial high sensitivity troponin is 7 with repeat at two hous being 8. I feel he has been ruled out for ACS with biomarkers. On repeat examination at 1800 he is resting comfortably and stated he would like to go home. I feel he can be discharged safely home with follow up to his primary care provider. Return instructions to the emergency department were reviewed. Dispositions is discharged home in stable condition. History & Record Review Discussion w/independent historian: Other (caregiver) Additional record(s) reviewed:: Prior labs Lab Data Attestation: I reviewed the patient's lab results. Labs: Laboratory Results - last 24 hr 01/22/24 01/22/24 14:45 17:09 WBC 6.5 RBC 3.62 L Hgb 10.8 L Hct 34.3 L MCV 94.8 H MCH 29.8 MCHC 31.5 L RDW Std Deviation 45.4 H RDW Coeff of Ulises 13.2 Plt Count 137 L MPV 10.4 Immature Gran % (Auto) 0.600 Neut % (Auto) 68.4 Lymph % (Auto) 10.6 L [place] % (Auto) 11.0 H Eos % (Auto) 8.9 H Baso % (Auto) 0.5 Absolute Neuts (auto) 4.5 Absolute Lymphs (auto) 0.69 L Nucleated RBC % 0 Sodium 138 Potassium 4.2 Chloride 108 H Carbon Dioxide 25.0 Anion Gap 5 BUN 22 H Creatinine 1.76 H Estim Creat Clear Calc 30.52 Est GFR (MDRD) Af Amer 48 L Est GFR (MDRD) Non-Af 40 L BUN/Creatinine Ratio 12.5 Glucose 145 H Calcium 8.7 Troponin I High Sens 7 8 Radiography Chest X-Ray - ED: 1 View, Read by ED Physician, No Acute Disease and Chronic Changes Differential Diagnosis Chest pain/SOB: pulmonary embolism Reason(s) PE less likely: Positive for PERC negative, Well's <3, not tachycardic and not hypoxic, ACS ACS: Positive for no evidence of ACS based on cardiac biomarkers and EKG without ischemia, pneumothorax Reason(s) pneumothorax less likely: Positive for bilateral breath sounds and FAMILY ASSISTANT withhout PTX and pneumonia Reason(s) pneumonia less likely: Positive for no infiltrate on CXR, no elevation in WBC count, no noted fever and symptoms not consistent with acute infection Discharge Plan Triage Chief Complaint: Chest Pain ED Provider: Rd Brian Dx/Rx/DC Orders Instructions: ED Chest Pain, Uncertain Cause Prescriptions: No Action sertraline 100 MG tablet 100 mg PO QHS Patient Comments: omeprazole 20 mg capsule,delayed release(DR/EC) 20 mg PO DAILY fexofenadine [Lynette Allergy] 180 mg tablet 180 mg PO DAILY oxybutynin chloride 10 mg tablet extended release 24hr 10 mg PO DAILY docusate sodium [Colace] 100 mg capsule 100 mg PO DAILY Primary Care Provider: Zeferino Bryson Referrals: Zeferino Bryson MD [Primary Care Provider] - 1-2 Days if not improving Activity Restrictions/Additional Instructions: Return with new or worsening symptoms. Print Language: Albanian Disposition Disposition: Home, Self Care
[2024-01-22 15:14] LABS: Anion Gap 5 (5-15); BUN 22 mg/dL (7-18); BUN/Creat Ratio 12.5 RATIO (10-20); Calcium,Total 8.7 mg/dL (8.5-10.1); Chloride 108 mmol/L (98-107); Creatinine, Serum 1.76 mg/dL (0.70-1.30); EST Glomerular Filtration Rate 40 mL/min (>60); Est Glom Filt Rate - Afr Amer 48 mL/min (>60); Estimated Creatinine Clearance 30.52 ml/min; Glucose 145 mg/dL (74-106); Potassium 4.2 mmol/L (3.5-5.1); Sodium Level 138 mmol/L (136-145); Troponin-I HS (w/2H Reflex) 7 pg/mL (3.0-78.0)
[2024-01-22 16:53] LABS: Reflex Troponin-HS? (from REC) Y
[2024-01-22 17:35] LABS: Troponin-I HS 8 pg/mL (3.0-78.0)
== END 2024-01-22 18:14 | disposition home or self-care (01) ==
PROVIDERS: Emergency Provider Emergency Medicine; PCP Family Medicine; Visit Provider Emergency Medicine
DX: R07.9 Chest pain, unspecified (principal); E11.9 Type 2 diabetes mellitus without complications; Z87.891 Personal history of nicotine dependence; E78.5 Hyperlipidemia, unspecified; I10 Essential (primary) hypertension
CPT/HCPCS: 71045; 80048; 84484; 85025; 93005; 99285; A4216

== ENCOUNTER → 2024-02-28 | Outpatient (CLI) | payer MEDICARE, SELFPAY ==
[2024-02-28 15:38] LABS: ALB/GLOB Ratio 0.8 RATIO (0.9-2.4); AST(SGOT) 19 U/L (15-37); Alanine Aminotransfer ALT/SGPT 23 U/L (16-61); Albumin, Serum 3.5 g/dL (3.2-5.0); Alkaline Phosphatase 104 U/L (45-117); Anion Gap 6 (5-15); BUN 27 mg/dL (7-18); BUN/Creat Ratio 15.3 RATIO (10-20); Calcium,Total 8.9 mg/dL (8.5-10.1); Chloride 105 mmol/L (98-107); Creatinine, Serum 1.76 mg/dL (0.70-1.30); EST Glomerular Filtration Rate 40 mL/min (>60); Est Glom Filt Rate - Afr Amer 48 mL/min (>60); Globulin 4.4 g/dL (2.2-4.2); Glucose 111 mg/dL (74-106); Potassium 4.3 mmol/L (3.5-5.1); Protein, Total 7.9 g/dL (6.4-8.2); Sodium Level 138 mmol/L (136-145); Uric Acid 6.5 mg/dL (3.5-7.2)
[2024-02-28 15:44] LABS: Hemoglobin A1c 6.3 % (3.8-5.6)
== END | disposition home or self-care (01) ==
LOC: MFPLAB 11:39
PROVIDERS: PCP Family Medicine; Visit Provider Family Medicine
DX: Z71.89 Other specified counseling (principal); M10.9 Gout, unspecified; E16.2 Hypoglycemia, unspecified
CPT/HCPCS: 36415; 80053; 83036; 84550

== ENCOUNTER → 2024-04-10 | Outpatient (CLI) | payer MEDICARE, SELFPAY ==
--- NOTE | 2024-04-10 15:01 | SP.MBSS_ITS ---
Modified Barium Swallow Patient Information Study Date: 04/10/24 Study Time: 13:00 Direct Billable Minutes: 150 Total Minutes procedure & reportin Diagnosis: Oropharyngeal dysphagia, R13.12 Referring Physician: Zeferino Bryson Reason for Referral: Objectively assess swallow function, assess risk for aspiration, and determine recommendations for least restrictive diet textures and compensatory strategies to improve safety of swallow. Medical History: Patient is an 84yo M w/ PMHx re: hypertension, chronic kidney insufficiency, sleep apnea, former smoker, type 2 diabetes mellitus and hyperlipidemia here for Modified Barium Swallow Study. History and physical limited. Communication w/ pt.'s daughter who reports coughing w/ PO intake, therefore she requested MBSS from pt.'s PCP. Mental Status: Impaired Respiratory Status: Oxygenating on Room Air Penetration-Aspiration Scale Penetration-Aspiration Scale: OBJECTIVE ASSESSMENT OF SWALLOW FUNCTION (QUANTITATIVE ? PER TRIAL): PENETRATION / ASPIRATION SCALE (HILLIARD): 1 = does not enter airway 2 = enters airway/above vocal folds/ejected 3 = enters airway/above vocal folds/not ejected 4 = enters airway/contacts vocal folds/ejected 5 = enters airway/contacts vocal folds/not ejected 6 = enters airway/below vocal folds/ejected 7 = enters airway/below vocal folds/not ejected despite effort 8 = enters airway/below vocal folds/no effort VIDEOFLOROSCOPIC SCALE SCORE (HILLIARD): Grade I = aspiration of material that has penetrated into the laryngeal vestibule, intact cough reflex Grade II = aspiration < 10 % of the bolus, intact cough reflex Grade III = aspiration of < 10 % of the bolus, reduced cough reflex or aspiration of > 10 % of the bolus, intact cough reflex Grade IV = aspiration of > 10 % of the bolus, reduced cough reflex Penetration-Aspiration Scale Score Thin Liquid via teaspoon: Result: 1= does not enter airway Thin Liquid via large single sip: cup: Result: 5= enters airways/contacts vocal folds/not ejected Comment: GAGGERMAN cued small sip, pt. took lg sip Thin Liquid via sequential sips: cup: Result: 5= enters airways/contacts vocal folds/not ejected Comment: GAGGERMAN cued small sip, pt. took lg, sequential sips. [place] Thick Liquid via small single sip: cup: Result: 3= enters airways/above vocal folds/not ejected [place] [employer] Thick Liquid via small single sip: cup Trial 2: Result: 3= enters airways/above vocal folds/not ejected Honey Thick Liquid via small single sip: cup: Result: 1= does not enter airway Pudding: Result: 1= does not enter airway Cookie: Result: 1= does not enter airway [place] [employer] Thick Liquid via small single sip: cup Trial 3: Result: 8= enters airway/below vocal folds/no effort Honey Thick Liquid via small single sip: cup Trial 2: Result: 5= enters airways/contacts vocal folds/not ejected Oral Phase Labial Seal: Interlabial escape, no progression to anterior lip Tongue Control During Bolus Hold: Posterior escape of greater than half of bolus Bolus Preparation/Mastication: Disorganized chewing/mashing with solid pieces of bolus unchewed Bolus Transport/Lingual Motion: Repetitive/disorganized tongue motion Oral Residue: Residue collection on oral structures Pharyngeal Phase Initiation of Pharyngeal Swallow: Bolus head in pyriforms Soft Palate Elevation: No bolus between soft palate and pharyngeal wall Laryngeal Elevation: Partial superior movement thyroid cart/partial apprx aryt- epig petiole Anterior Hyoid Excursion: Partial anterior movement Epiglottic Movement: Partial inversion Laryngeal Vestibule Closure at Height of Swallow: Incomplete; narrow column of air/contrast in laryngeal vestibule Pharyngeal Stripping Wave: Present - diminished Pharyngoesophageal Segment Opening: Parital distension and partial duration; parital obstruction of flow Tongue Base Retraction: Wide column of contrast between tongue base & post. pharyngeal wall Pharyngeal Residue: Collection of residue within or on pharyngeal structures Treatment Strategies Effects of treatment strategies attemped:: small sips = unable to follow verbal cue effortful swallow = unable to follow verbal cue Diagnosis/Impression Diagnosis: moderate oropharyngeal dysphagia R13.12 Impression: Pt. presents w/ moderate oropharyngeal dysphagia. Oral phase primarily marked by... - oral residue present after the swallow observed w/ all consistences. - poor bolus control w/ >1/2 of the bolus prematurely spilling to the vallecula and pyriforms prior to swallow initiation. - significant difficulty w/ mastication and oral processing of 1/2 Rayna Doone cookie. Pt. demonstrated prolonged mastication as he took over 5 minutes to adequately masticate the cookie. He had difficulty breaking down the cookie into a manageable bolus likely d/t dentition. - after mastication, the bolus was observed to remain on the back of the tongue/vallecula for an extended period of time prior to initiating the swallow. He needed liquid wash to assist in clearing the residue. Pharyngeal phase primarily marked by... - delayed pharyngeal onset timing resulting in suboptimal bolus location upon swallow onset. - reduced closure of the airway during deglutition attributed to reduced laryngeal elevation, reduced anterior hyoid excursion, reduced epiglottic inversion which contributed to significant penetration to the cords. - laryngeal penetration to the cords during deglutition observed w/ thin liquids via cup, nectar-thick liquids and honey-thick liquids. - aspiration was observed following the mastication of the cookie and a subsequent liquid wash with nectar-thick liquids. Cannot definitively determine if the aspiration was of the cookie and/or nectar-thick liquid. - poor pharyngeal motility attributed to wide tongue base retraction and reduced posterior stripping wave. Significant amount of residues remaining in the va llecula post deglutition observed w/ all consistencies. Increased pharyngeal residues with thicker viscosities and cookie. Recommendations Diet: Mechanical Soft Textures and Thin Liquids (small sips) Compensatory Strategies: Small Bites, Small Sips, Slow Rate, Feed only when alert, Multiple Swallows, Alternate bites/solids and sips/liquids, Sitting upright, Remain sitting upright for 30 minutes after PO intake and Assist with verbal cues to use recommended strategies Supervision: Assist as needed and Fed by trained family Recommend Repeat Modified Barium Swallow: Yes Need for Skilled Speech Therapy Services: Yes Comment: Patient requires intensive skilled speech-language intervention targeting ? continued diet texture management ? training and implementation of recommended compensatory strategies ? training and implementation of recommended oral strengthening exercises to facilitate improved swallow function. Education Completed: 1. Described result of evaluation., 2. Pt understands evaluation & agrees with goals and treatment plan. and 4. Family/caregivers understand evaluation & agree w/ goals & tx plan. Comment: Communication w/ pt.'s daughter regarding results of study. Despite laryngeal penetration to the cords/aspiration across all consistencies, thin liquids are recommended. This decision is based on the observed reduction in pharyngeal residue with thin liquids, the patient's ability to better manage and clear thin liquids w/ strategies and the absence of any respiratory compromise or history of aspiration pneumonia. GAGGERMAN has determined that maintaining hydration with thin liquids and training/instructing on compensatory strategies provides the best balance of safety and quality of life for Mr. Messer. Daughter asked if a straw that limits the volume would be effective in decreasing penetration/aspiration risk as thin via tsp. on the initial trial was only PAS=1. GAGGERMAN provided education on trialing cup or straw that control the volume in speech therapy sessions. GAGGERMAN is recommending ST services to target dysphagia and repeat MBSS in 2-[address]. [address] Patient: Active Contact Information [facility] Speech Therapy:: Trisha Barlow M.A. [facility] Speech-Language Pathologist [facility] [address] [place] [address] [email or web address] [phone]
== END | disposition home or self-care (01) ==
LOC: RAD 13:12
PROVIDERS: PCP Family Medicine; Referring Provider Family Medicine; Visit Provider Family Medicine
DX: R13.10 Dysphagia, unspecified (principal)
CPT/HCPCS: 74230; 92611

== ENCOUNTER → 2024-04-25 | Outpatient (CLI) | payer MEDICARE, SELFPAY ==
--- NOTE | 2024-04-25 14:59 | VDLE_ITS ---
Reason For Study: LLE PAIN RIGHT LEFT CFV is compressible, spontaneous, phasic, GSV is normal. competent and demonstrates normal CFV is compressible, spontaneous, phasic, augmentation. competent, and demonstrates normal Procedure augmentation. This is a venous duplex using B-mode, color FV is compressible, spontaneous, phasic, flow and spectral Doppler. competent and demonstrates normal Exam performed in department. augmentation. A preliminary report was called and/or faxed POP V is compressible, spontaneous, phasic, to Dr. Bryson @ 15:25 pm. competent and demonstrates normal augmentation. T/P Trunk is compressible. PTV is compressible. LT PerV is compressible. ANAECHOIC STRUCTURE NOTED IN LT MID MEDIAL CALF AREA MEASURING > 4.5cm X 1.05cm. VL/Venous Duplex US, Unilateral Interpretation Summary Deep veins of the left lower extremity are patent and compressible segmentally. There is no evidence of left lower extremity deep vein thrombosis. The left great saphenous vein derrek ears patent and compressible segmentally. Anechoic structure noted in the left medial calf measuring great than 4.5cm X 1 .05cm. Ordering Physician: Zeferino Bryson Referring Physician: Zeferino Bryson Performed By: Yara Mckeon, JAX, RVT
== END | disposition home or self-care (01) ==
PROVIDERS: PCP Family Medicine; Referring Provider Family Medicine; Visit Provider Family Medicine
DX: M79.605 Pain in left leg (principal)
CPT/HCPCS: 93971

== ENCOUNTER → 2024-06-10 | Outpatient (CLI) | payer MEDICARE, SELFPAY ==
[2024-06-10 18:20] LABS: Anion Gap 6 (5-15); BUN 28 mg/dL (7-18); BUN/Creat Ratio 17.8 RATIO (10-20); Calcium,Total 9.1 mg/dL (8.5-10.1); Chloride 104 mmol/L (98-107); Creatinine, Serum 1.57 mg/dL (0.70-1.30); EST Glomerular Filtration Rate 45 mL/min (>60); Est Glom Filt Rate - Afr Amer 55 mL/min (>60); Glucose 129 mg/dL (74-106); Potassium 4.8 mmol/L (3.5-5.1); Sodium Level 137 mmol/L (136-145); Uric Acid 6.8 mg/dL (3.5-7.2)
== END | disposition home or self-care (01) ==
PROVIDERS: PCP Family Medicine; Referring Provider Family Medicine; Visit Provider Family Medicine
DX: M10.9 Gout, unspecified (principal)
CPT/HCPCS: 36415; 80048; 84550